=== PATIENT | male | born 1935 | race Caucasian/White ===

== ENCOUNTER 2017-09-03 09:30 | Outpatient (CLI) | payer MEDICARE ==
[2017-09-03 13:10] LABS: ALBUMIN 3.9 g/dL (3.2-5.5); ALBUMIN/GLOBULIN RATIO 1.3 (1.0-2.2); ALKALINE PHOSPHATASE 53 IU/L (42-121); ALT ALANINE AMINOTRANSFERASE 22 IU/L (10-60); AST ASPARTATE AMINOTRANSFERASE 40 IU/L (10-42); BILIRUBIN,TOTAL 1.4 mg/dL (0.2-1.0); BUN - BLOOD UREA NITROGEN 11 mg/dL (6-20); CARBON DIOXIDE - CO2 21 mmol/L (21-32); CHLORIDE 107 mmol/L (101-111); CHOL/HDL RATIO 2.8 (<5.0); CHOLESTEROL 191 mg/dL; CREATININE 1.1 mg/dL (0.6-1.2); GFR - MDRD 64 (>89); GLUCOSE 130 mg/dL (70-100); HDL CHOLESTEROL 68 mg/dL; LDL CHOLESTEROL,CALCULATED 96 mg/dL; LDL/HDL RATIO 1.4 (<3.6); SODIUM 137 mmol/L (135-145); VLDL CHOLESTEROL 27 mg/dL
[2017-09-03 13:38] LABS: HB2 TOTAL 16.7 g/dL; HEMOGLOBIN A1C 0.57 g/dL; HEMOGLOBIN A1C % 5.3 % (4.6-6.2)
== END 2017-09-03 09:31 ==
LOC: LAB.WCP 09:30
PROVIDERS: ATTEND Family Medicine
DX: E11.9 Type 2 diabetes mellitus without complications (principal); I10 Essential (primary) hypertension; E78.5 Hyperlipidemia, unspecified; R60.0 Localized edema; Z12.5 Encounter for screening for malignant neoplasm of prostate
CPT/HCPCS: 36415; 80053; 80061; 83036; 84443; G0103; 83721; 84153

== ENCOUNTER 2018-07-18 11:52 | Outpatient (CLI) | payer MEDICARE ==
[2018-07-18 12:08] LABS: BASOPHILS # (AUTO) 0.1 10^3/uL (0.0-0.1); BASOPHILS % (AUTO) 1.1 %; EOSINOPHILS # (AUTO) 0.2 10^3/uL (0.0-0.7); EOSINOPHILS % (AUTO) 1.9 %; LYMPHOCYTES # (AUTO) 1.5 10^3/uL (1.5-3.5); MEAN CORPUSCULAR HEMOGLOBIN 31.4 pg (27.0-31.0); MEAN CORPUSCULAR HGB CONC 33.7 g/dL (32.0-36.0); MEAN CORPUSCULAR VOLUME 93.3 fL (80.0-94.0); MEAN PLATELET VOLUME 7.2 fL (7.4-11.4); MONOCYTES # (AUTO) 0.8 10^3/uL (0.0-1.0); MONOCYTES % (AUTO) 8.5 %; NEUTROPHILS # (AUTO) 6.4 10^3/uL (1.5-6.6); NEUTROPHILS % (AUTO) 71.5 %; PLT - PLATELET COUNT 304 10^3/uL (130-450); RED BLOOD COUNT 4.77 10^6/uL (4.70-6.10); RED CELL DISTRIBUTION WIDTH 13.2 % (12.0-15.0)
[2018-07-18 12:20] LABS: ALBUMIN/GLOBULIN RATIO 1.1 (1.0-2.2); BILIRUBIN,TOTAL 0.9 mg/dL (0.2-1.0); CALCIUM 9.1 mg/dL (8.5-10.3); CREATININE 1.1 mg/dL (0.6-1.2); TOTAL PROTEIN 7.5 g/dL (6.7-8.2)
== END 2018-07-18 11:53 | disposition home or self-care (01) ==
LOC: LAB 11:52
PROVIDERS: ATTEND Nurse Practitioner
DX: I48.0 Paroxysmal atrial fibrillation (principal)
CPT/HCPCS: 36415; 80053; 84443; 85025

== ENCOUNTER 2018-08-06 09:25 | Outpatient (CLI) | payer MEDICARE | END 2018-08-06 09:26 | disposition home or self-care (01) | LOC: DI 09:25 | PROVIDERS: ATTEND Nurse Practitioner | DX: I48.91 Unspecified atrial fibrillation (principal); I08.0 Rheumatic disorders of both mitral and aortic valves; I27.20 Pulmonary hypertension, unspecified | CPT/HCPCS: 93306 ==

== ENCOUNTER 2018-11-07 19:36 | Outpatient (CLI) | payer MEDICARE | END 2018-11-07 19:37 | disposition critical access hospital (66) | LOC: EMS 19:36 | PROVIDERS: ATTEND Surgery | DX: R55 Syncope and collapse (principal); W10.8XXA Fall (on) (from) other stairs and steps, initial encounter; Y92.008 Other place in unspecified non-institutional (private) residence as the place of occurrence of the external cause | CPT/HCPCS: A0425; A0429 ==

== ENCOUNTER 2019-02-08 21:57 | Outpatient (CLI) | payer MEDICARE | END 2019-02-08 21:58 | disposition critical access hospital (66) | LOC: EMS 21:57 | PROVIDERS: ATTEND Surgery | DX: R53.1 Weakness (principal); R09.89 Other specified symptoms and signs involving the circulatory and respiratory systems; M25.562 Pain in left knee; M25.561 Pain in right knee | CPT/HCPCS: A0425; A0427 ==

== ENCOUNTER 2019-02-08 22:07 | Emergency (ER) | payer MEDICARE ==
--- NOTE | 2019-02-08 22:23 | ED Physician Documentation ---
PD HPI ALTERED MENTAL STATUS - Stated complaint Stated Complaint: WEAKNESS - Chief complaint Chief Complaint: Laceration - History obtained from History obtained from: Patient - History of Present Illness Timing - onset: How many hours ago (3) Timing - duration: Hours (3) Timing - details: Abrupt onset (He been having some level of general weakness without chest pain or dyspnea over the last 2 days and that abruptly worsened this evening to the point where he fell over trying to walk landed on his knees with abrasions was unable to get up on his own. He denied any injury to his head or neck or chest), Still present Quality / character: Other (general weakness) Associated symptoms: General weakness. No: Fever, Headache, Dyspnea, Cough, NVD Contributing factors: No: Anticoagulated, Recent med change, Recent illness, Intoxicated Basline status: Alert and oriented X 3, Independent, Cane Similar symptoms before: Diagnosis (Has had episodes of dizziness and also leg weakness related to MS in the past. He thought this might be it initially though the worsening tonight would be unusual.) Review of Systems Constitutional: reports: Fatigue. denies: Fever, Chills, Myalgias Nose: denies: Rhinorrhea / runny nose, Congestion Throat: denies: Sore throat Cardiac: reports: Palpitations, Pedal edema (mild chronic). denies: Chest pain / pressure, Calf pain Respiratory: denies: Dyspnea, Cough GI: denies: Abdominal Pain, Nausea, Vomiting, Diarrhea : denies: Dysuria, Frequency Musculoskeletal: denies: Neck pain, Back pain PD PAST MEDICAL HISTORY - Past Medical History Cardiovascular: Hypertension, Atrial fibrillation Respiratory: None Neuro: Multiple sclerosis Endocrine/Autoimmune: None GI: None - Present Medications Home Medications: Ambulatory Orders Medication Instructions Recorded Confirmed Lisinopril [Zestril] 20 mg PO DAILY 02/08/19 02/08/19 - Allergies Allergies/Adverse Reactions: Allergies Allergy/AdvReac Type Severity Reaction Status Date / Time No Known Drug Allergies Allergy Verified 02/08/19 22:17 - Living Situation Living Situation: reports: With spouse/s.o. Living Arrangement: reports: At home - Social History Does the pt smoke?: No Does the pt drink ETOH?: No Does the pt have substance abuse?: No - Family History Family history: reports: CAD PD ED PE NORMAL - Vitals Vital signs reviewed: Yes - General General: Alert and oriented X 3, No acute distress, Well developed/nourished - HEENT HEENT: Atraumatic, Pharynx benign - Neck Neck: Supple, no meningeal sign, No adenopathy - Cardiac Cardiac: No rub, Other (1/6 murmur left chest). No: RRR (regular but tachycardic) - Respiratory Respiratory: Clear bilaterally, Other (no chestwall tenderness) - Abdomen Abdomen: Soft, Non tender - Male Male : Deferred - Rectal Rectal: Deferred - Back Back: No CVA TTP - Derm Derm: Normal color, Warm and dry - Extremities Extremities: No calf tenderness / cord, Other (1+ edema in both lower legs without any tenderness. There are abrasions partial thickness skin on both anterior knees from his recent fall. No signs of infection. There are no bony deformities noted. There is a prepatellar effusion on the right. There is some tenderness along the right upper thigh and some pain with range of motion of the right hip.) - Neuro Neuro: Alert and oriented X 3, No motor deficit, No sensory deficit, Normal speech, Other (He is not able to move his right leg as well due to pain in the knee and hip does not seem to be due to weakness per se.) Eye Opening: Spontaneous Motor: Obeys Commands Verbal: Oriented GCS Score: 15 Results - Vitals Vitals: Vital Signs - 24 hr 02/08/19 02/08/19 02/08/19 22:07 22:16 23:17 Temperature 36.7 C Heart Rate 136 H 132 H 109 H Respiratory 31 H 14 31 H Rate Blood Pressure 119/82 H 119/82 H 105/74 O2 Saturation 100 98 95 02/09/19 00:22 Temperature 36.3 C L Heart Rate 110 H Respiratory 32 H Rate Blood Pressure 112/94 H O2 Saturation 100 Oxygen O2 Source Room air - EKG (time done) 22:14 Rate: Rate (enter#) (134) Rhythm: Atrial flutter [place]: Normal Intervals: Wide QRS, RBBB Ischemia: ST depression (lateral). No: ST elevation c/w ischemia - Labs Labs: Laboratory Tests 02/08/19 02/08/19 02/08/19 22:48 22:48 22:48 WBC 34.3 H RBC 4.91 Hgb 15.0 Hct 44.0 MCV 89.6 MCH 30.5 MCHC 34.1 RDW 13.2 Plt Count 276 MPV 9.4 Neut # (Auto) Not Reportable Lymph # (Auto) Not Reportable Esmeralda # (Auto) Not Reportable Eos # (Auto) Not Reportable Baso # (Auto) Not Reportable Absolute Nucleated RBC Not Reportable Total Counted 100 Band Neuts % (Manual) 16 H Abnorm Lymph % (Manual) 0 Nucleated RBC % Not Reportable Neutrophils # (Manual) 32.2 H Lymphocytes # (Manual) 0.7 L Monocytes # (Manual) 1.4 H Eosinophils # (Manual) 0.0 Basophils # (Manual) 0.0 Differential Comment MANUAL DIFFERENTIAL WBC Morphology NORMAL APPEARANCE Platelet Estimate NORMAL (130-450,000) Platelet Morphology NORMAL APPEARANCE RBC Morph Micro Appear NORMAL APPEARANCE Sodium 134 L Potassium 4.3 Chloride 100 L Carbon Dioxide 19 L Anion Gap 15.0 H BUN 32 H Creatinine 1.9 H Estimated GFR (MDRD) 34 L Glucose 161 H Calcium 8.8 Magnesium 2.5 Total Bilirubin 1.3 H AST 83 H ALT 22 Alkaline Phosphatase 66 Troponin I High Sens 722.1 H* B-Natriuretic Peptide Total Protein 7.6 Albumin 3.7 Globulin 3.9 Albumin/Globulin Ratio 0.9 L Lipase 25 TSH Ethyl Alcohol < 5.0 02/08/19 02/08/19 02/09/19 22:48 22:48 00:01 WBC RBC Hgb Hct MCV MCH MCHC RDW Plt Count MPV Neut # (Auto) Lymph # (Auto) Esmeralda # (Auto) Eos # (Auto) Baso # (Auto) Absolute Nucleated RBC Total Counted Band Neuts % (Manual) Abnorm Lymph % (Manual) Nucleated RBC % Neutrophils # (Manual) Lymphocytes # (Manual) Monocytes # (Manual) Eosinophils # (Manual) Basophils # (Manual) Differential Comment WBC Morphology Platelet Estimate Platelet Morphology RBC Morph Micro Appear Sodium Potassium Chloride Carbon Dioxide Anion Gap BUN Creatinine Estimated GFR (MDRD) Glucose Calcium Magnesium Total Bilirubin AST ALT Alkaline Phosphatase Troponin I High Sens 1511.0 H* B-Natriuretic Peptide 101 H Total Protein Albumin Globulin Albumin/Globulin Ratio Lipase TSH 3.28 Ethyl Alcohol - Rads (name of study) chest xray Radiology: Prelim report reviewed, See rad report (no acute process) right hip Radiology: Prelim report reviewed (no fractures), See rad report bilat knees Radiology: Prelim report reviewed (no fractures), See rad report PD MEDICAL DECISION MAKING - ED course Complexity details: reviewed results (Elevated troponin with a repeat showing increasing elevation significant enough to be concerning for acute DE.), considered differential (General weakness without chest pain, but has tachycardia. ECG showing nonspec changes. ), d/w patient, d/w communication consultant ([facility] Hortensia Dietz, [facility] [place], who approves our transferring to facility with available beds. ) Departure - Departure Disposition: 02 Transfer Acute Care Hosp Clinical Impression: Generalized weakness, Right hip pain, Elevated troponin Accidental fall Qualifiers: Encounter type: initial encounter Qualified Code(s): W19.XXXA - Unspecified fall, initial encounter Knee abrasion Qualifiers: Encounter type: initial encounter Laterality: unspecified laterality Qualified Code(s): S80.219A - Abrasion, unspecified knee, initial encounter Atrial flutter Qualifiers: Atrial flutter type: typical Qualified Code(s): I48.3 - Typical atrial flutter Condition: Stable Record reviewed to determine appropriate education?: Yes
[2019-02-08] MEDS ORDERED: METOPROLOL 5 MG/5 ML VIAL IVP STA (22:39)
[2019-02-08] MEDS ORDERED: SODIUM CHLORIDE 0.9% 500 ML IV ONE (22:39)
[2019-02-08] MEDS ORDERED: MUPIROCIN 2% OINT 1 GM TOP STA (22:40)
[2019-02-08 22:53] LABS: BASOPHILS % (AUTO) 0.4 %; LYMPHOCYTES % (AUTO) 1.5 %; MEAN CORPUSCULAR HEMOGLOBIN 30.5 pg (27.0-31.0); MEAN CORPUSCULAR HGB CONC 34.1 g/dL (32.0-36.0); MEAN CORPUSCULAR VOLUME 89.6 fL (80.0-94.0); MEAN PLATELET VOLUME 9.4 fL (7.4-11.4); MONOCYTES % (AUTO) 4.3 %; NEUTROPHILS % (AUTO) 89.6 %; PLT - PLATELET COUNT 276 10^3/uL (130-450); RED BLOOD COUNT 4.91 10^6/uL (4.70-6.10); RED CELL DISTRIBUTION WIDTH 13.2 % (12.0-15.0); WHITE BLOOD COUNT 34.3 x10^3/uL (4.8-10.8)
[2019-02-08 22:59] LABS: ABNORMAL LYMPHS % (MANUAL) 0 %
[2019-02-08 23:12] LABS: ALBUMIN 3.7 g/dL (3.2-5.5); ALBUMIN/GLOBULIN RATIO 0.9 (1.0-2.2); ALKALINE PHOSPHATASE 66 IU/L (42-121); ALT ALANINE AMINOTRANSFERASE 22 IU/L (10-60); AST ASPARTATE AMINOTRANSFERASE 83 IU/L (10-42); BILIRUBIN,TOTAL 1.3 mg/dL (0.2-1.0); BUN - BLOOD UREA NITROGEN 32 mg/dL (6-20); CALCIUM 8.8 mg/dL (8.5-10.3); CARBON DIOXIDE - CO2 19 mmol/L (21-32); CHLORIDE 100 mmol/L (101-111); CREATININE 1.9 mg/dL (0.6-1.2); GFR - MDRD 34 (>89); GLUCOSE 161 mg/dL (70-100); LIPASE 25 U/L (22-51); MAGNESIUM 2.5 mg/dL (1.7-2.8); SODIUM 134 mmol/L (135-145); TOTAL PROTEIN 7.6 g/dL (6.7-8.2)
[2019-02-08 23:30] LABS: BAND NEUTROPHILS % (MANUAL) 16 %; DIFFERENTIAL COMMENT MANUAL DIFFERENTIAL; LYMPHOCYTES # (MANUAL) 0.7 10^3/uL (1.5-3.5); LYMPHOCYTES % (MANUAL) 2 %; MONOCYTES # (MANUAL) 1.4 10^3/uL (0.0-1.0); PLATELET ESTIMATE, MANUAL NORMAL (130-450,000) (NORMAL); PLATELET MORPHOLOGY NORMAL APPEARANCE (NORMAL); RBC MORPHOLOGY (MULTIPLE) NORMAL APPEARANCE (NORMAL)
--- NOTE | 2019-02-08 23:39 | XRAY Report ---
Reason: fall Procedure Date: 02/08/2019 Accession Number: [id number] / [id number] Procedure: XR - Hip w/Pelvis 2-3V RT CPT Code: Final Report FULL RESULT: EXAM: RIGHT HIP RADIOGRAPHY EXAM DATE: 02/08/2019 11:10 PM. CLINICAL HISTORY: Fall. COMPARISON: ABDOMEN/PELVIS W/ 11/07/2018 8:27 PM. TECHNIQUE: 2 views. FINDINGS: Bones: No evidence of acute fracture. 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 Joints: Normal. No dislocation. The hip joint space is preserved. Soft Tissues: Normal. No soft tissue swelling. IMPRESSION: No evidence of acute fracture. RADIA
--- NOTE | 2019-02-08 23:40 | XRAY Report ---
Reason: chest pain Procedure Date: 02/08/2019 Accession Number: [id number] / [id number] Procedure: XR - Chest 1 View X-Ray CPT Code: 46677 Final Report FULL RESULT: EXAM: CHEST RADIOGRAPHY EXAM DATE: 02/08/2019 11:33 PM. CLINICAL HISTORY: Chest pain. COMPARISON: None. TECHNIQUE: 1 view. FINDINGS: Lungs/Pleura: Low lung volumes, producing crowding of the pulmonary vasculature. No focal infiltrate, effusion, or pneumothorax. Mediastinum: Cardiomegaly. Other: None. IMPRESSION: Cardiomegaly, but no evidence of acute cardiopulmonary disease. RADIA
--- NOTE | 2019-02-08 23:41 | XRAY Report ---
Reason: fall Procedure Date: 02/08/2019 Accession Number: [id number] / [id number] Procedure: XR - Knee 3 View BILAT CPT Code: Final Report FULL RESULT: EXAMS: 1. Right Knee Radiography 2. Left Knee Radiography EXAM DATE:02/08/2019 11:33 PM. CLINICAL HISTORY:Fall. COMPARISON: None. TECHNIQUE: 3 views each. FINDINGS: Right Knee: Bones: Normal. No fractures or bone lesions. Joints: Mild osteoarthritis. Moderate effusion. Soft Tissues: Anterior soft tissue swelling and laceration. Left Knee: Bones: Normal. No fractures or bone lesions. Joints: Mild osteoarthritis. No effusion. Soft Tissues: Anterior soft tissue swelling. IMPRESSION: No evidence of acute fracture. RADIA
[2019-02-08] MEDS ORDERED: ASPIRIN CHEW 81 MG TABLET PO STA (23:43)
[2019-02-09] MEDS ORDERED: HEPARIN 5,000 UNIT/ML VIAL IVP STA (00:05)
[2019-02-09] MEDS ORDERED: HEPARIN 25000UNITS/500ML (D5W) 25,000 UNIT/500 ML BAG IV STA (00:05)
[2019-02-09] MEDS ORDERED: CLOPIDOGREL 75 MG TABLET PO STA (00:44)
[2019-02-09 01:45] VITALS: BP 134/61
== END 2019-02-09 02:06 | disposition short-term general hospital (02) ==
LOC: EDUNIT# → ED 22:07
DX: S80.211A Abrasion, right knee, initial encounter (principal); S80.212A Abrasion, left knee, initial encounter; M25.461 Effusion, right knee; R53.1 Weakness; M25.551 Pain in right hip; R79.89 Other specified abnormal findings of blood chemistry; R00.0 Tachycardia, unspecified; W18.39XA Other fall on same level, initial encounter; Y93.01 Activity, walking, marching and hiking; Y92.009 Unspecified place in unspecified non-institutional (private) residence as the place of occurrence of the external cause; G35 Multiple sclerosis; I10 Essential (primary) hypertension
CPT/HCPCS: 36415; 71045; 73502; 73562; 80053; 83690; 83735; 83880; 84443; 84484; 85025; 93005; 96361; 96374; 96375; 96376; 99284; 99285; A9270; 80320

== ENCOUNTER 2019-02-09 02:08 | Outpatient (CLI) | payer MEDICARE | END 2019-02-09 02:09 | disposition short-term general hospital (02) | LOC: EMS 02:08 | PROVIDERS: ATTEND Surgery | DX: I21.4 Non-ST elevation (NSTEMI) myocardial infarction (principal) | CPT/HCPCS: A0425; A0426 ==

== ENCOUNTER 2019-02-24 07:00 | Outpatient (CLI) | payer MEDICARE, OTHER ==
[2019-02-24 15:07] LABS: BASOPHILS # (AUTO) 0.1 10^3/uL (0.0-0.1); BASOPHILS % (AUTO) 0.9 %; EOSINOPHILS # (AUTO) 0.1 10^3/uL (0.0-0.7); HGB - HEMOGLOBIN 10.2 g/dL (14.0-18.0); LYMPHOCYTES # (AUTO) 1.1 10^3/uL (1.5-3.5); LYMPHOCYTES % (AUTO) 7.9 %; MEAN CORPUSCULAR HEMOGLOBIN 30.4 pg (27.0-31.0); MEAN CORPUSCULAR HGB CONC 32.7 g/dL (32.0-36.0); MEAN CORPUSCULAR VOLUME 92.9 fL (80.0-94.0); MEAN PLATELET VOLUME 9.2 fL (7.4-11.4); MONOCYTES # (AUTO) 0.8 10^3/uL (0.0-1.0); MONOCYTES % (AUTO) 5.7 %; NEUTROPHILS # (AUTO) 11.6 10^3/uL (1.5-6.6); NEUTROPHILS % (AUTO) 82.9 %; PLT - PLATELET COUNT 470 10^3/uL (130-450); RED BLOOD COUNT 3.36 10^6/uL (4.70-6.10); RED CELL DISTRIBUTION WIDTH 12.8 % (12.0-15.0)
[2019-02-24 15:22] LABS: ALBUMIN 2.1 g/dL (3.2-5.5); ALBUMIN/GLOBULIN RATIO 0.6 (1.0-2.2); ALKALINE PHOSPHATASE 73 IU/L (42-121); ALT ALANINE AMINOTRANSFERASE 28 IU/L (10-60); AST ASPARTATE AMINOTRANSFERASE 35 IU/L (10-42); BILIRUBIN,TOTAL 0.8 mg/dL (0.2-1.0); BUN - BLOOD UREA NITROGEN 21 mg/dL (6-20); CARBON DIOXIDE - CO2 22 mmol/L (21-32); CHLORIDE 99 mmol/L (101-111); CREATININE 1.1 mg/dL (0.6-1.2); CRP - C-REACTIVE PROTEIN 14.8 mg/dL (0-1.0); GFR - MDRD 64 (>89); GLUCOSE 140 mg/dL (70-100); SODIUM 131 mmol/L (135-145); TOTAL PROTEIN 5.6 g/dL (6.7-8.2); VANCOMYCIN,RANDOM 22.9 ug/mL
== END 2019-02-24 23:59 | disposition home or self-care (01) ==
LOC: LAB.R 07:00
PROVIDERS: ATTEND Family Medicine
DX: I82.409 Acute embolism and thrombosis of unspecified deep veins of unspecified lower extremity (principal); I10 Essential (primary) hypertension; D72.829 Elevated white blood cell count, unspecified; M25.461 Effusion, right knee; M00.9 Pyogenic arthritis, unspecified; I21.4 Non-ST elevation (NSTEMI) myocardial infarction
CPT/HCPCS: 80053; 80202; 85025; 85651; 86140

== ENCOUNTER 2019-02-27 08:00 | Outpatient (CLI) | payer MEDICARE, OTHER ==
[2019-02-27 22:11] LABS: BASOPHILS # (AUTO) 0.1 10^3/uL (0.0-0.1); BASOPHILS % (AUTO) 0.8 %; EOSINOPHILS # (AUTO) 0.1 10^3/uL (0.0-0.7); EOSINOPHILS % (AUTO) 1.3 %; HGB - HEMOGLOBIN 10.9 g/dL (14.0-18.0); LYMPHOCYTES # (AUTO) 1.3 10^3/uL (1.5-3.5); LYMPHOCYTES % (AUTO) 15.4 %; MEAN CORPUSCULAR HEMOGLOBIN 29.9 pg (27.0-31.0); MEAN CORPUSCULAR HGB CONC 32.7 g/dL (32.0-36.0); MEAN CORPUSCULAR VOLUME 91.2 fL (80.0-94.0); MEAN PLATELET VOLUME 9.3 fL (7.4-11.4); MONOCYTES # (AUTO) 0.7 10^3/uL (0.0-1.0); NEUTROPHILS # (AUTO) 6.1 10^3/uL (1.5-6.6); NEUTROPHILS % (AUTO) 73.3 %; PLT - PLATELET COUNT 419 10^3/uL (130-450); RED BLOOD COUNT 3.65 10^6/uL (4.70-6.10); RED CELL DISTRIBUTION WIDTH 12.6 % (12.0-15.0); WHITE BLOOD COUNT 8.3 x10^3/uL (4.8-10.8)
[2019-02-27 22:13] LABS: BILIRUBIN,URINE NEGATIVE (NEGATIVE); GLUCOSE, URINE (UA) NEGATIVE (NEGATIVE); KETONES,URINE (UA) NEGATIVE (NEGATIVE); LEUKOCYTE ESTERASE, URINE NEGATIVE (NEGATIVE); NITRITE,URINE NEGATIVE (NEGATIVE); OCCULT BLOOD,URINE TRACE-INTA (NEGATIVE); PROTEIN,URINE NEGATIVE (NEGATIVE); UROBILINOGEN,URINE 0.2 (NORMAL) E.U./dL (NORMAL)
[2019-02-27 22:18] LABS: CLARITY,URINE CLEAR (CLEAR)
[2019-02-27 22:26] LABS: ALBUMIN 2.1 g/dL (3.2-5.5); ALBUMIN/GLOBULIN RATIO 0.6 (1.0-2.2); CALCIUM 8.3 mg/dL (8.5-10.3); CREATININE 0.9 mg/dL (0.6-1.2); TOTAL PROTEIN 5.8 g/dL (6.7-8.2)
== END 2019-02-27 08:01 | disposition home or self-care (01) ==
LOC: LAB.R 08:00
DX: I10 Essential (primary) hypertension (principal); I48.91 Unspecified atrial fibrillation; N39.0 Urinary tract infection, site not specified
CPT/HCPCS: 80053; 81001; 81003; 85025; 87086

== ENCOUNTER 2019-03-04 08:00 | Outpatient (CLI) | payer MEDICARE, OTHER ==
[2019-03-04 10:22] LABS: BASOPHILS # (AUTO) 0.1 10^3/uL (0.0-0.1); BASOPHILS % (AUTO) 0.8 %; EOSINOPHILS # (AUTO) 0.1 10^3/uL (0.0-0.7); EOSINOPHILS % (AUTO) 1.6 %; HGB - HEMOGLOBIN 11.1 g/dL (14.0-18.0); LYMPHOCYTES # (AUTO) 1.5 10^3/uL (1.5-3.5); LYMPHOCYTES % (AUTO) 16.8 %; MEAN CORPUSCULAR HEMOGLOBIN 29.7 pg (27.0-31.0); MEAN CORPUSCULAR HGB CONC 33.2 g/dL (32.0-36.0); MEAN CORPUSCULAR VOLUME 89.3 fL (80.0-94.0); MEAN PLATELET VOLUME 9.5 fL (7.4-11.4); MONOCYTES # (AUTO) 0.8 10^3/uL (0.0-1.0); MONOCYTES % (AUTO) 8.5 %; NEUTROPHILS # (AUTO) 6.4 10^3/uL (1.5-6.6); NEUTROPHILS % (AUTO) 70.9 %; PLT - PLATELET COUNT 485 10^3/uL (130-450); RED BLOOD COUNT 3.74 10^6/uL (4.70-6.10); RED CELL DISTRIBUTION WIDTH 12.6 % (12.0-15.0)
[2019-03-04 10:24] LABS: ALBUMIN 2.6 g/dL (3.2-5.5); ALBUMIN/GLOBULIN RATIO 0.6 (1.0-2.2); BILIRUBIN,TOTAL 0.7 mg/dL (0.2-1.0); CALCIUM 8.7 mg/dL (8.5-10.3); CREATININE 0.9 mg/dL (0.6-1.2); TOTAL PROTEIN 6.7 g/dL (6.7-8.2)
== END 2019-03-04 23:59 | disposition home or self-care (01) ==
LOC: LAB.R 08:00
PROVIDERS: ATTEND Family Medicine
DX: M67.362 Transient synovitis, left knee (principal); A41.9 Sepsis, unspecified organism; I21.4 Non-ST elevation (NSTEMI) myocardial infarction
CPT/HCPCS: 80053; 85025

== ENCOUNTER 2019-03-11 11:30 | Outpatient (CLI) | payer MEDICARE, OTHER ==
[2019-03-11 14:14] LABS: BASOPHILS # (AUTO) 0.1 10^3/uL (0.0-0.1); BASOPHILS % (AUTO) 0.7 %; EOSINOPHILS # (AUTO) 0.2 10^3/uL (0.0-0.7); EOSINOPHILS % (AUTO) 1.8 %; HGB - HEMOGLOBIN 10.5 g/dL (14.0-18.0); LYMPHOCYTES # (AUTO) 1.5 10^3/uL (1.5-3.5); MEAN CORPUSCULAR HEMOGLOBIN 29.2 pg (27.0-31.0); MEAN CORPUSCULAR HGB CONC 33.2 g/dL (32.0-36.0); MEAN CORPUSCULAR VOLUME 87.8 fL (80.0-94.0); MEAN PLATELET VOLUME 9.2 fL (7.4-11.4); MONOCYTES # (AUTO) 0.9 10^3/uL (0.0-1.0); MONOCYTES % (AUTO) 9.8 %; NEUTROPHILS % (AUTO) 68.3 %; PLT - PLATELET COUNT 417 10^3/uL (130-450); RED CELL DISTRIBUTION WIDTH 12.7 % (12.0-15.0); WHITE BLOOD COUNT 8.8 x10^3/uL (4.8-10.8)
[2019-03-11 14:24] LABS: ALBUMIN 2.6 g/dL (3.2-5.5); ALBUMIN/GLOBULIN RATIO 0.7 (1.0-2.2); BILIRUBIN,TOTAL 0.4 mg/dL (0.2-1.0); CALCIUM 8.6 mg/dL (8.5-10.3); TOTAL PROTEIN 6.5 g/dL (6.7-8.2); URIC ACID 3.2 mg/dL (2.6-7.2)
== END 2019-03-11 23:59 | disposition home or self-care (01) ==
LOC: LAB.R 11:30
DX: D72.829 Elevated white blood cell count, unspecified (principal); I82.409 Acute embolism and thrombosis of unspecified deep veins of unspecified lower extremity; I10 Essential (primary) hypertension; M10.9 Gout, unspecified; M00.9 Pyogenic arthritis, unspecified
CPT/HCPCS: 80053; 84550; 85025

== ENCOUNTER 2019-03-19 11:00 | Outpatient (CLI) | payer MEDICARE ==
[2019-03-19 18:49] LABS: BASOPHILS # (AUTO) 0.1 10^3/uL (0.0-0.1); BASOPHILS % (AUTO) 0.6 %; EOSINOPHILS # (AUTO) 0.2 10^3/uL (0.0-0.7); EOSINOPHILS % (AUTO) 1.9 %; HGB - HEMOGLOBIN 11.6 g/dL (14.0-18.0); LYMPHOCYTES # (AUTO) 1.8 10^3/uL (1.5-3.5); LYMPHOCYTES % (AUTO) 19.2 %; MEAN CORPUSCULAR HEMOGLOBIN 29.3 pg (27.0-31.0); MEAN CORPUSCULAR HGB CONC 32.6 g/dL (32.0-36.0); MEAN CORPUSCULAR VOLUME 89.9 fL (80.0-94.0); MEAN PLATELET VOLUME 9.2 fL (7.4-11.4); MONOCYTES # (AUTO) 0.7 10^3/uL (0.0-1.0); MONOCYTES % (AUTO) 7.7 %; NEUTROPHILS # (AUTO) 6.4 10^3/uL (1.5-6.6); PLT - PLATELET COUNT 461 10^3/uL (130-450); RED BLOOD COUNT 3.96 10^6/uL (4.70-6.10); RED CELL DISTRIBUTION WIDTH 13.3 % (12.0-15.0); WHITE BLOOD COUNT 9.3 x10^3/uL (4.8-10.8)
[2019-03-19 19:00] LABS: CALCIUM 9.4 mg/dL (8.5-10.3); CREATININE 0.9 mg/dL (0.6-1.2)
== END 2019-03-19 23:59 | disposition home or self-care (01) ==
LOC: LAB.R 11:00
DX: E87.1 Hypo-osmolality and hyponatremia (principal); M25.861 Other specified joint disorders, right knee; D72.829 Elevated white blood cell count, unspecified
CPT/HCPCS: 80048; 85025; 85651

== ENCOUNTER 2019-03-26 13:19 | Outpatient (CLI) | payer MEDICARE | END 2019-03-26 13:20 | disposition critical access hospital (66) | LOC: EMS 13:19 | PROVIDERS: ATTEND Surgery | DX: R55 Syncope and collapse (principal); M25.461 Effusion, right knee | CPT/HCPCS: A0425; A0429 ==

== ENCOUNTER 2019-03-26 13:22 | Inpatient (IN) | payer MEDICARE ==
[2019-03-26 13:58] LABS: BASOPHILS # (AUTO) 0.1 10^3/uL (0.0-0.1); BASOPHILS % (AUTO) 0.5 %; EOSINOPHILS # (AUTO) 0.1 10^3/uL (0.0-0.7); EOSINOPHILS % (AUTO) 1.2 %; HGB - HEMOGLOBIN 11.5 g/dL (14.0-18.0); LYMPHOCYTES # (AUTO) 1.4 10^3/uL (1.5-3.5); LYMPHOCYTES % (AUTO) 12.4 %; MEAN CORPUSCULAR HEMOGLOBIN 27.9 pg (27.0-31.0); MEAN CORPUSCULAR VOLUME 87.1 fL (80.0-94.0); MEAN PLATELET VOLUME 8.9 fL (7.4-11.4); MONOCYTES % (AUTO) 8.6 %; NEUTROPHILS # (AUTO) 8.5 10^3/uL (1.5-6.6); PLT - PLATELET COUNT 391 10^3/uL (130-450); RED BLOOD COUNT 4.12 10^6/uL (4.70-6.10); RED CELL DISTRIBUTION WIDTH 13.8 % (12.0-15.0); WHITE BLOOD COUNT 11.2 x10^3/uL (4.8-10.8)
--- NOTE | 2019-03-26 14:06 | ED Physician Documentation ---
PD HPI SYNCOPE - Stated complaint Stated Complaint: SYNCOPE - Chief complaint Chief Complaint: Neuro - History obtained from History obtained from: Patient, Family - History of Present Illness Witnessed: Witnessed (83-year-old gentleman has been in a [facility] since a heart attack few days after [place].. Per him he was not stented, it was just treated medically. He had a syncopal episode today for maybe a couple of minutes. He did not know what was coming or looked dizzy before hand. There was no injury. He complains of right knee pain but that is not an acute issue, that is been going on for months since a fall previously. There is no associated chest pain or trouble breathing. He feels fine now. No dark or tarry stools.) Review of Systems Ten Systems: 10 systems reviewed and negative Constitutional: denies: Fever, Chills Cardiac: denies: Chest pain / pressure, Palpitations Respiratory: denies: Dyspnea, Cough PD PAST MEDICAL HISTORY - Past Medical History Cardiovascular: Hypertension, Atrial fibrillation Respiratory: None Neuro: Multiple sclerosis Endocrine/Autoimmune: None GI: None - Past Surgical History Past Surgical History: Yes Ortho: Other HEENT: Tonsil/Adenoidectomy - Present Medications Home Medications: Ambulatory Orders Medication Instructions Recorded Confirmed Lisinopril [Zestril] 20 mg PO QDBREAKFAST 02/08/19 03/26/19 Acetaminophen [Tylenol Extra 1,000 mg PO TID 03/26/19 03/26/19 Strength] Colchicine [Colcrys] 0.6 mg PO QDBREAKFAST 03/26/19 03/26/19 Diltiazem HCl [Cardizem LA] 120 mg PO QDBREAKFAST 03/26/19 03/26/19 Metoprolol Tartrate [Lopressor] 100 mg PO BIDWM 03/26/19 03/26/19 Multivitamin [Theragran] 1 each PO QDBREAKFAST 03/26/19 03/26/19 Potassium Chloride [K-Dur] 20 meq PO QDBREAKFAST 03/26/19 03/26/19 Rivaroxaban [Xarelto] 20 mg PO QDBREAKFAST 03/26/19 03/26/19 Saccharomyces Boulardii [Florastor] 250 mg PO QDBREAKFAST 03/26/19 03/26/19 Sodium Chloride [Salt Tab] 1 gm PO QDBREAKFAST 03/26/19 03/26/19 allopurinoL [Zyloprim] 100 mg PO QDBREAKFAST 03/26/19 03/26/19 traMADol [Ultram] 50 mg PO Q6H PRN MDD 300 MG 03/26/19 03/26/19 - Allergies Allergies/Adverse Reactions: Allergies Allergy/AdvReac Type Severity Reaction Status Date / Time No Known Drug Allergies Allergy Verified 03/26/19 13:34 - Social History Does the pt smoke?: No Smoking Status: Never smoker Does the pt drink ETOH?: No Does the pt have substance abuse?: No - Immunizations Immunizations are current?: Yes - POLST Patient has POLST: No PD ED PE NORMAL - Vitals Vital signs reviewed: Yes - General General: Alert and oriented X 3 (He seems to have some short-term memory issues, not a great historian.), No acute distress - HEENT HEENT: PERRL, EOMI - Neck Neck: Supple, no meningeal sign, No bony TTP - Cardiac Cardiac: RRR (With occasional extrasystoles and no murmur) - Respiratory Respiratory: No respiratory distress, Clear bilaterally - Abdomen Abdomen: Soft, Non tender - Back Back: No CVA TTP, No spinal TTP - Derm Derm: Normal color, Warm and dry - Extremities Extremities: No edema, No calf tenderness / cord, Other (The right knee has a large effusion, hurts to move, no warmth or redness. No calf pain or swelling.) - Neuro Neuro: Alert and oriented X 3, Normal speech Results - Vitals Vitals: Vital Signs - 24 hr 03/26/19 03/26/19 13:25 14:39 Temperature 36.1 C L Heart Rate 85 76 Respiratory 18 18 Rate Blood Pressure 104/78 120/83 H O2 Saturation 100 95 Oxygen O2 Source Room air - EKG (time done) 1335 Rate: Rate (enter#) (75) Rhythm: NSR Intervals: Prolonged [place], RBBB Compare to prior EKG: Changed from prior EKG (Last EKG on file was dated February 08 of last year. He was having a STEMI at the time, the ST segments are now flat with a changed right bundle branch block.) - Labs Labs: Laboratory Tests 03/26/19 03/26/19 03/26/19 13:48 13:48 13:48 WBC 11.2 H RBC 4.12 L Hgb 11.5 L Hct 35.9 L MCV 87.1 MCH 27.9 MCHC 32.0 RDW 13.8 Plt Count 391 MPV 8.9 Neut # (Auto) 8.5 H Lymph # (Auto) 1.4 L [place] # (Auto) 1.0 Eos # (Auto) 0.1 Baso # (Auto) 0.1 Absolute Nucleated RBC 0.00 Nucleated RBC % 0.0 Sodium 134 L Potassium 4.2 Chloride 98 L Carbon Dioxide 24 Anion Gap 12.0 BUN 25 H Creatinine 1.0 Estimated GFR (MDRD) 71 L Glucose 120 H Calcium 9.4 Total Bilirubin 0.6 AST 27 ALT 18 Alkaline Phosphatase 95 Troponin I High Sens 8.9 Total Protein 7.4 Albumin 3.4 Globulin 4.0 Albumin/Globulin Ratio 0.9 L Lipase 38 PD MEDICAL DECISION MAKING - ED course ED course: 83-year-old gentleman with non-premonition of syncope today. He is anticoagulated with a history of heart disease. His EKG is nonischemic, occasional extrasystoles on the monitor, nothing looking malignant. Given his age and risk factors though he would placed in observation for arrhythmia monitoring Departure - Departure Disposition: ED Place in Observation Clinical Impression: Syncope Qualifiers: Syncope type: unspecified Qualified Code(s): R55 - Syncope and collapse Condition: Stable Discharge Date/Time: 03/26/19 16:35
[2019-03-26 14:14] LABS: ALBUMIN 3.4 g/dL (3.2-5.5); ALBUMIN/GLOBULIN RATIO 0.9 (1.0-2.2); BILIRUBIN,TOTAL 0.6 mg/dL (0.2-1.0); CALCIUM 9.4 mg/dL (8.5-10.3); TOTAL PROTEIN 7.4 g/dL (6.7-8.2)
--- NOTE | 2019-03-26 16:01 | PHARMACY PROGRESS NOTE ---
- Best Possible Medication History Admit Date and Time: Patient still in ED Processed by: Pharmacy Medication History completed: Yes Patient Interview: Pt unable to participate Secondary Source(s): Facility MAR as ONLY source As the person ultimately responsible for medication therapy, providers are able to order a medication from an existing home medication list in [facility] via the "Reconcile Routine" prior to Confirmation of that medication by shipping support clerk. Such practice is discouraged except when the physician, in their clinical judgment, deems that a medical need exists for a medication without regard to previous use.
[2019-03-26] MEDS ORDERED: ZOLPIDEM 5 MG TABLET PO PRN (16:11)
[2019-03-26] MEDS ORDERED: SODIUM CHLORIDE FLUSH 0.9% 10 ML SYRINGE IVP PRN (16:11)
[2019-03-26] MEDS ORDERED: ONDANSETRON 4 MG/2 ML VIAL IVP PRN (16:11)
--- NOTE | 2019-03-26 16:23 | HISTORY & PHYSICAL EXAMINATION ---
Chief Complaint - Chief Complaint Chief Complaint: syncope History of Present Illness - Admitted From Admitted From:: ER - History Obtained From History obtained from: his and his sister Exam Limitations: confused - History of Present Illness HPI Comment/Other: Mr. Ball is a 83-year-old man with a PMH significant for MS, HTN, Afib with Xarelto, recent heart attach without stent, who present ER complain of syncope. pt is confused, he could not provide history. pt's is at the bedside to help provide medical history. pt is living at [facility] now. Per pt's report, In this morning around 10am, when PT in [facility] tried to move pt from the bed to the chair, pt lost his conscience about couple of minutes. There was no injury. She report her often refused to drink water as well. Pt's sister report pt had a heart attack on 2018, then pt was transferred to [facility]. In there pt did not have stent. Instead, pt's right knee was gotten infected, pt had aspiration for his knee. Since from that, pt's right lower extremity became swelling. There is no chest pain, fever, chill, shortness of breath, headache, seizure, unilateral weakness or focal neurological deficit. Pt report he feels fine, no GI bleed or black stool. Route test reveals normal arrange of Troponin, slight elevated BUN, Na is 134, slight elevated WBC at 11.4. In ER, pt has is afebrile, hemodynamic stable. pt is admitted for syncope. Discussed with pt's for the care goal, she state pt has POLST, and pt is DNR/DNI. History - Past Medical History Cardiovascular: reports: Hypertension, Atrial fibrillation Respiratory: reports: None Neuro: reports: Multiple sclerosis Endocrine/Autoimmune: reports: None GI: reports: None MRSA Hx?: No - Past Surgical History Ortho: reports: Other HEENT: reports: Tonsil/Adenoidectomy - Family & Social History Family History: Mother: Cancer Family History Comment/Other: pt's mother from cancer, his father at ago 94. pt has one brother and one sister, all are healthy Social History Notes: pt has no hx of smoking, alcohol, and drug issue. he is l iving at [facility]. - POLST Patient has POLST: Yes POLST Status: DNR Meds/Allgy - Home Medications Home Medications: Ambulatory Orders Medication Instructions Recorded Confirmed Lisinopril [Zestril] 20 mg PO QDBREAKFAST 02/08/19 03/26/19 Acetaminophen [Tylenol Extra 1,000 mg PO TID 03/26/19 03/26/19 Strength] Colchicine [Colcrys] 0.6 mg PO QDBREAKFAST 03/26/19 03/26/19 Diltiazem HCl [Cardizem LA] 120 mg PO QDBREAKFAST 03/26/19 03/26/19 Metoprolol Tartrate [Lopressor] 100 mg PO BIDWM 03/26/19 03/26/19 Multivitamin [Theragran] 1 each PO QDBREAKFAST 03/26/19 03/26/19 Potassium Chloride [K-Dur] 20 meq PO QDBREAKFAST 03/26/19 03/26/19 Rivaroxaban [Xarelto] 20 mg PO QDBREAKFAST 03/26/19 03/26/19 Saccharomyces Boulardii [Florastor] 250 mg PO QDBREAKFAST 03/26/19 03/26/19 Sodium Chloride [Salt Tab] 1 gm PO QDBREAKFAST 03/26/19 03/26/19 allopurinoL [Zyloprim] 100 mg PO QDBREAKFAST 03/26/19 03/26/19 traMADol [Ultram] 50 mg PO Q6H PRN MDD 300 MG 03/26/19 03/26/19 - Allergies Allergies/Adverse Reactions: Allergies Allergy/AdvReac Type Severity Reaction Status Date / Time No Known Drug Allergies Allergy Verified 03/26/19 13:34 Review of Systems - Constitutional Constitutional: denies: Fatigue, Fever, Chills, Malaise, Weakness, Poor appetite - Eyes Eyes: denies: Pain, Amaurosis, Spots in vision, Field loss, Vision loss - Ears, Nose & Throat Ears, Nose & Throat: denies: Ear pain, Vertigo, Nasal pain, Nosebleeds, Nasal obstruction, Nasal congestion, Postnasal drainage, Sore throat, Mouth lesions, Bleeding gums - Cardiovascular Cariovascular: reports: Syncope. denies: Irregular heart rate, Palpitations, Chest pain, Edema, Lightheadedness, Exertional dyspnea, Decr. exercise tolerance - Respiratory Respiratory: denies: Cough, Sputum production, Wheezing, Snoring, Hemoptysis, Orthopnea, SOB at rest, SOB with exertion - Gastrointestinal Gastrointestinal: denies: Abdominal pain, Abdominal distention, Constipation, Diarrhea, Change in bowel habits, Rectal bleeding, Black stools, Bloody stools, Nausea, Vomiting - Genitourinary Genitourinary: denies: Dysuria, Frequency, Urgency, Hematuria, Incontinence, Flank pain, Nocturia, Urethral discharge - Musculoskeletal Musculoskeletal: denies: Muscle pain, Back pain, Muscle aches, Stiffness, Limited range of motion, Muscle weakness, Gout - Integumentary Integumentary: denies: Rash, Pruritis, Lesions, Dryness, Lumps, Acne, Pigment changes, Nail changes - Neurological Neurological: denies: General weakness, Focal weakness, Headache, Dizziness, Numbness, Memory problems, Pre-existing deficit, Abnormal gait, Seizures, Incoordination, Slurred speech - Psychiatric Psychiatric: denies: Depression, Anxiety, Suicidal, Delusions, Hallucinations, Homicidal - Endocrine Endocrine: denies: Polyuria, Polydypsia, Polyphagia, Intolerance to cold - Hematologic/Lymphatic Hematologic/Lymphatic: denies: Anemia, Bruising, Petechiae, Blood clots, Lymphadenopathy, Bleeding tendencies - All Other Systems All Other Systems: reports: Other (pt's help answer ROS) Exam - Vital Signs Vital Signs: Vital Signs x48h Temp Pulse Resp BP Pulse Ox 03/26/19 14:39 76 18 120/83 H 95 03/26/19 13:25 36.1 C L 85 18 104/78 100 - Physical Exam General Appearance: positive: No acute distress, Alert. negative: Lethargic Eyes Bilateral: positive: Normal inspection, PERRL, EOMI, No lid inflammation ENT: positive: ENT inspection nml, Pharynx nml, No signs of dehydration. negative: Purulent nasal drainage Neck: positive: Nml inspection, Thyroid nml, No JVD, Trachea midline. negative: Thyromegaly, Lymphadenopathy (R), Lymphadenopathy (L), Stiff neck, Tracheal deviation Respiratory: positive: Chest non-tender, No respiratory distress, Breath sounds nml. negative: Wheezes, Rales, Rhonchi Cardiovascular: positive: Regular rate & rhythm, No murmur, No gallop. n egative: Irregularly irregular, Extrasystoles, Tachycardia, Bradycardia, JVD present, Systolic murmur, Diastolic murmur Peripheral Pulses: positive: 2+ Abdomen: positive: Non-tender, No organomegaly, Nml bowel sounds, No distention. negative: Tenderness, Guarding, Rebound Back: positive: Nml inspection. negative: CVA tenderness (R), CVA tenderness (L) Skin: positive: Color nml, No rash, Warm, Dry. negative: Cyanosis, Diaphoresis, Pallor, Skin rash Extremities: positive: Non-tender. negative: Calf tenderness, Jackie's sign/cords Neurologic/Psychiatric: positive: Sensation nml. negative: Weakness, Sensory loss, Facial droop, Slurred/abnml speech Sepsis Event Note (H) - Evaluation Current Stage of Sepsis: Ruled out Conclusion/Plan - Problem List (1) Syncope Conclusion/Plan: when pt was changed position, pt has syncope, it is likely from orthostatic hypotension, and pt has mild to moderate dehydration from clinically and lab test. plan: ECHO tele and vital monitor orthostatic vital check hydration with IVF Qualifiers: Syncope type: unspecified Qualified Code(s): R55 - Syncope and collapse (2) Afib Conclusion/Plan: pt has hx of Afib, now pt is has stable HR and BP resume home Cardizem and Metoprolol, home Xarelto. 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 pt has no focal neurolo gical deficit. pt is on Xarelto neuro check nurse oriental to pt (4) HTN (hypertension) Conclusion/Plan: pt has slight lower BP at admission, now stable, resume home meds Cardizem and Metoprolol vital monitor pt (5) Dehydration Conclusion/Plan: pt has slight elevated BUN and creatinine, clinic pt present dehydration. IVF of NS, precaution of fluid overload (6) Hyponatremia Conclusion/Plan: Na 134 today, likely from hypovolium hyponatremia hydration with IV of NS lab monitor (7) Hx of multiple sclerosis Conclusion/Plan: stable, no flare. closely monitor - Lab Results Fish Bones: 03/26/19 13:48 03/26/19 13:48 Core Measures - Anticipated LOS I expect patient to be DC'd or transferred within 96 hours.: Yes - DVT/VTE - Prophylaxis VTE/DVT Device ordered at admit?: Yes VTE/DVT Prophylaxis med ordered at admit?: Yes
[2019-03-26] MEDS: SODIUM CHLORIDE FLUSH 0.9% 10 ML SYRINGE IVP SCH (17:06)
[2019-03-26] MEDS ORDERED: SODIUM CHLORIDE 0.9% 1,000 ML IV SCH (18:00)
[2019-03-26] MEDS: SODIUM CHLORIDE 0.9% 1,000 ML IV SCH (18:06)
[2019-03-26] MEDS: METOPROLOL TARTRATE 50 MG TABLET PO SCH (18:09)
--- NOTE | 2019-03-26 20:26 | XRAY Report ---
Reason: SOB Procedure Date: 03/26/2019 Accession Number: [id number] / [id number] Procedure: XR - Chest 1 View X-Ray CPT Code: 13856 Final Report FULL RESULT: EXAM: CHEST RADIOGRAPHY EXAM DATE: 03/26/2019 05:44 PM. CLINICAL HISTORY: Shortness of breath. COMPARISON: CHEST 1 VIEW 02/08/2019 10:54 PM. TECHNIQUE: 1 view. FINDINGS: Lungs/Pleura: No focal opacities evident. No pleural effusion. No pneumothorax. Mediastinum: The cardiomediastinal silhouette has decreased in size in the interval and is now within normal limits. Mediastinal widening is also resolved. Other: None. IMPRESSION: 1. No acute cardiopulmonary disease. 2. Interval resolution of cardiomediastinal silhouette widening. RAD[facility]
[2019-03-26] MEDS: FAMOTIDINE 20 MG TABLET PO SCH (21:29)
[2019-03-26] MEDS: ACETAMINOPHEN 325 MG TABLET PO PRN (22:59)
[2019-03-27] MEDS: SODIUM CHLORIDE FLUSH 0.9% 10 ML SYRINGE IVP SCH ×3 (01:03→19:12)
[2019-03-27] MEDS: SODIUM CHLORIDE 0.9% 1,000 ML IV SCH (03:17)
[2019-03-27] MEDS: ACETAMINOPHEN 325 MG TABLET PO PRN ×3 (03:22→19:37)
[2019-03-27] MEDS: traMADol 50 MG TABLET PO PRN ×3 (04:26→22:13)
[2019-03-27 04:31] LABS: BASOPHILS # (AUTO) 0.1 10^3/uL (0.0-0.1); BASOPHILS % (AUTO) 0.6 %; EOSINOPHILS # (AUTO) 0.2 10^3/uL (0.0-0.7); HGB - HEMOGLOBIN 10.2 g/dL (14.0-18.0); LYMPHOCYTES # (AUTO) 1.9 10^3/uL (1.5-3.5); LYMPHOCYTES % (AUTO) 21.7 %; MEAN CORPUSCULAR HEMOGLOBIN 29.2 pg (27.0-31.0); MEAN CORPUSCULAR HGB CONC 33.2 g/dL (32.0-36.0); MEAN PLATELET VOLUME 8.6 fL (7.4-11.4); MONOCYTES # (AUTO) 0.8 10^3/uL (0.0-1.0); MONOCYTES % (AUTO) 8.5 %; NEUTROPHILS # (AUTO) 5.9 10^3/uL (1.5-6.6); NEUTROPHILS % (AUTO) 66.4 %; PLT - PLATELET COUNT 338 10^3/uL (130-450); RED BLOOD COUNT 3.49 10^6/uL (4.70-6.10); RED CELL DISTRIBUTION WIDTH 13.9 % (12.0-15.0); WHITE BLOOD COUNT 8.9 x10^3/uL (4.8-10.8)
[2019-03-27 04:41] LABS: CALCIUM 8.9 mg/dL (8.5-10.3); CREATININE 1.1 mg/dL (0.6-1.2); MAGNESIUM 1.8 mg/dL (1.7-2.8)
[2019-03-27 08:00] LABS: BILIRUBIN,URINE NEGATIVE (NEGATIVE); GLUCOSE, URINE (UA) NEGATIVE (NEGATIVE); KETONES,URINE (UA) NEGATIVE (NEGATIVE); LEUKOCYTE ESTERASE, URINE NEGATIVE (NEGATIVE); NITRITE,URINE NEGATIVE (NEGATIVE); OCCULT BLOOD,URINE NEGATIVE (NEGATIVE); PH,URINE 5.5 PH (5.0-7.5); PROTEIN,URINE NEGATIVE (NEGATIVE); UROBILINOGEN,URINE 0.2 (NORMAL) E.U./dL (NORMAL)
[2019-03-27 08:07] LABS: CLARITY,URINE CLEAR (CLEAR)
[2019-03-27 08:19] LABS: BACTERIA,URINE Rare /HPF (None Seen); RBC,URINE 0-5 /HPF (0-5); SQUAMOUS EPITHELIAL CELL,UR RARE Squamous (<= Few)
[2019-03-27] MEDS: METOPROLOL TARTRATE 50 MG TABLET PO SCH ×2 (08:56→19:10)
[2019-03-27] MEDS: diltiaZEM CD 120 MG CAPSULE PO SCH (08:57)
[2019-03-27] MEDS: FAMOTIDINE 20 MG TABLET PO SCH ×2 (08:57→22:13)
[2019-03-27] MEDS: RIVAROXABAN 10 MG TABLET PO SCH (08:58)
--- NOTE | 2019-03-27 11:27 | Discharge Plan ---
Discharge Plan Problem Reviewed?: Yes Condition: Stable No Smoking: If you smoke, Please STOP! Call for help. Follow-up with: Kamini Bragg ARNP, [facility] [Primary Care Provider] -
--- NOTE | 2019-03-27 12:34 | XRAY Report ---
Reason: aspiration, cough Procedure Date: 03/27/2019 Accession Number: [id number] / [id number] Procedure: XR - Chest 1 View X-Ray CPT Code: 97448 Final Report FULL RESULT: EXAM: CHEST RADIOGRAPHY EXAM DATE: 03/27/2019 12:17 PM. CLINICAL HISTORY: Aspiration, cough. COMPARISON: CHEST 1 VIEW 03/26/2019 5:28 PM. TECHNIQUE: 1 view. FINDINGS: Lungs/Pleura: Development of consolidation at right lung base and infiltrate in the right upper lung. Left lung appears clear. Heart size within normal limits. IMPRESSION: Right lung infiltrates, compatible with aspiration. RADIA
--- NOTE | 2019-03-27 13:16 | PROVIDER PROGRESS NOTE ---
Assessment/Plan - Problem List (1) Aspiration pneumonia Assessment/Plan: 2 pt present lots of cough. it seems from his aspiration. CXR reveals infiltration on right lung, compatible with aspiration. start with antibiotics Unasyn, nurse for aspiration precaution, order mucnix consult with ST, begin with dysphagia diet until ST review 2) Syncope Conclusion/Plan: 03/27 pt report he feel much better today. pt's ECHO is unremarkable, and EKG reveals stable without ST variation. Syncope is likely from pt's orthostatic hypotension and dehydration, will hold his home BP meds Lisinopril now but continue Cardizem and Metoprolol because of Afib. continue hydration and precaution of fluid overload. when pt was changed position, pt has syncope, it is likely from orthostatic hypotension, and pt has mild to moderate dehydration from clinically and lab test. plan: ECHO tele and vital monitor orthostatic vital check hydration with IVF (3)slurred speech 03/27 pt present some slurred speech compared with yesterday. but pt has hx of MS, and pt is on Xarelto, and more importantly pt has no unilateral weakness, and mental status is better we will order CT of head to r/o stroke, or mass, will followup, continue Xarelto as his home meds (4) Afib Conclusion/Plan: 03/27 stable, continue Xarelto pt has hx of Afib, now pt is has stable HR and BP resume home Cardizem and Metoprolol, home Xarelto. tele and vital monitor (5) Confused Conclusion/Plan: 03/27 pt's mental status is significantly improved today. continue support and oriented, and neuro check as well. it is likely from pt's baseline plus related dementia. pt has no focal neurological deficit. pt is on Xarelto neuro check nurse oriental to pt (6) HTN (hypertension) Conclusion/Plan: 03/27 stable, continue Cardizem and Metoprolol and hold Lisinopril now pt has slight lower BP at admission, now stable, resume home meds Cardizem and Metoprolol vital monitor pt (7) Dehydration Conclusion/Plan: 03/27 continue hydration for two bag of NS, lab monitor pt has slight elevated BUN and creatinine, clinic pt present dehydration. IVF of NS, precaution of fluid overload (8) Hyponatremia Conclusion/Plan: 03/27 resolved. Na is 135 today Na 134 today, likely from hypovolium hyponatremia hydration with IV of NS lab monitor (9) Hx of multiple sclerosis Conclusion/Plan: stable, no flare. closely monitor (10)S/P right knee aspiration pt has right knee joint infection (?) then had right knee aspiration recently in [facility], per pt's family report, and pt was d/c to [facility] for rehab. we will ask for medical record from [facility]. now pt's right knee seems stable, no erythema or warmth, with very mild swelling. pt did not complaint acute change. resume home meds Allopurinal, colchicine. Tylenol PRN for pain control as well. unfortunately we do not have orthopedics for consult now. (2) Syncope Qualifiers: Syncope type: unspecified Qualified Code(s): R55 - Syncope and collapse - Current Meds Current Meds: Current Medications Generic Name Dose Route Start Last Admin Trade Name Freq PRN Reason Stop Dose Admin Acetaminophen 650 mg 03/26/19 16:11 03/27/19 08:57 Tylenol PO 650 mg Q4HR PRN Administration Pain 1 to 4 Diltiazem HCl 120 mg 03/27/19 08:00 03/27/19 08:57 Cardizem Cd PO 120 mg QDBREAKFAST JUSTINE Administration Famotidine 20 mg 03/26/19 21:00 03/27/19 08:57 Pepcid PO 20 mg BID JUSTINE Administration Metoprolol Tartrate 100 mg 03/26/19 18:30 03/27/19 08:56 Lopressor PO 100 mg BIDWM JUSTINE Administration Rivaroxaban 20 mg 03/27/19 08:00 03/27/19 08:58 Xarelto PO 20 mg QDBREAKFAST JUSTINE Administration Sodium Chloride 10 ml 03/26/19 17:00 03/27/19 08:58 Normal Saline Flush 0.9% IVP 10 ml 0100,0900,1700 JUSTINE Administration Tramadol HCl 50 mg 03/26/19 16:21 03/27/19 04:26 Ultram PO 50 mg Q6H PRN Administration PAIN - Lab Result Fish Bone Diagrams: 03/27/19 04:25 03/27/19 04:25 - Additional Planning My Orders: My Active Orders 03/26/19 16:11 Telemetry- [RC] Q4HR Acetaminophen [Tylenol] 650 mg PO Q4HR PRN Ondansetron Inj [Zofran Inj] 4 mg IVP Q6HR PRN Sodium Chloride Flush 0.9% [Normal Saline Flush 0.9%] 10 ml IVP PRN PRN Zolpidem [Ambien] 5 mg PO QPM PRN 03/26/19 16:12 Activity Orders [RC] Q2HR IO [RC] IOSHIFT Initiate Bowel Care Protocol [RC] .protocol Initiate Line Care Protocol [RC] QSHIFT Initiate Personal Care Protoco [RC] .protocol Oxygen Therapy [RC] Routine Vital Signs [RC] Q4HR Code Status [OTHERS] Routine Condition of Patient [OTHERS] Routine DVT Prophylaxis [OTHERS] Routine 03/26/19 16:13 IV Insert [RC] .ONCE 03/26/19 16:14 SCDs [RC] QSHIFT 03/26/19 16:15 Echo Transthoracic Complete [ECHO] Stat 03/26/19 16:21 traMADol [Ultram] 50 mg PO Q6H PRN 03/26/19 17:00 Sodium Chloride Flush 0.9% [Normal Saline Flush 0.9%] 10 ml IVP 0100,0900,1700 03/26/19 17:35 Orthostatic [Vital Signs - Orthostatic] [RC] DAILY 03/26/19 17:55 Code Status [OTHERS] Routine 03/26/19 18:02 Nutrition Consult [CONS] Routine 03/26/19 18:22 Neuro Check [RC] QSHIFT 03/26/19 18:30 Metoprolol Tartrate [Lopressor] 100 mg PO BIDWM 03/26/19 21:00 Famotidine [Pepcid] 20 mg PO BID 03/26/19 Dinner Cardiac Diet [DIET] 03/27/19 07:37 Orthostatic [Vital Signs - Orthostatic] [RC] QSHIFT 03/27/19 08:00 Rivaroxaban [Xarelto] 20 mg PO QDBREAKFAST diltiaZEM CD [Cardizem Cd] 120 mg PO QDBREAKFAST 03/27/19 11:27 HEAD WO [CT] Stat 03/27/19 14:00 Ampicillin/Sulbactam [Unasyn] 3 gm Sodium Chloride 0.9% Minibag [Normal Saline 0.9% Minibag] 100 ml IV Q6HR 03/28/19 05:00 BMP - BASIC METABOLIC PANEL [CHEM] DAILYLAB CBC - COMP BLD CT W/AUTO DIFF [HEME] DAILYLAB 03/29/19 05:00 BMP - BASIC METABOLIC PANEL [CHEM] DAILYLAB CBC - COMP BLD CT W/AUTO DIFF [HEME] DAILYLAB 03/30/19 05:00 BMP - BASIC METABOLIC PANEL [CHEM] DAILYLAB CBC - COMP BLD CT W/AUTO DIFF [HEME] DAILYLAB Subjective - Subjective Patient Reports: Feeling Better, Cough Objective Vital Signs: Vital Signs - 24 hr 03/26/19 03/26/19 03/26/19 13:25 14:39 16:37 Temperature 36.1 C L Heart Rate 85 76 77 Heart Rate [ Brachial] Respiratory 18 18 18 Rate Blood Pressure 104/78 120/83 H 111/99 H Blood Pressure [Left Brachial artery] Blood Pressure [Right Brachial artery] O2 Saturation 100 95 95 03/26/19 03/26/19 03/26/19 17:00 18:09 21:00 Temperature 36.6 C 36.5 C Heart Rate Heart Rate [ 78 69 Brachial] Respiratory 18 18 Rate Blood Pressure 121/63 Blood Pressure 121/63 [Left Brachial artery] Blood Pressure 104/62 [Right Brachial artery] O2 Saturation 100 100 03/26/19 03/27/19 03/27/19 23:28 04:23 06:31 Temperature 36.7 C 36.5 C 36.5 C Heart Rate 65 Heart Rate [ 70 65 Brachial] Respiratory 20 20 20 Rate Blood Pressure Blood Pressure [Left Brachial artery] Blood Pressure 110/77 112/49 L [Right Brachial artery] O2 Saturation 98 100 100 03/27/19 03/27/19 07:49 08:56 Temperature 36.5 C Heart Rate Heart Rate [ 72 Brachial] Respiratory 18 Rate Blood Pressure 125/62 Blood Pressure [Left Brachial artery] Blood Pressure 125/62 [Right Brachial artery] O2 Saturation 98 Oxygen O2 Source Room air I&O (Last 24 Hrs): Intake and Output Totals x24h 03/25/19 03/26/19 03/27/19 23:59 23:59 23:59 Intake Total 858.405 6440.000 Output Total 100 300 Balance 780.567 995.000 General: Alert, Cooperative, No acute distress HEENT: Atraumatic, PERRLA Neck: Supple Lymphatic: no adenopathy Neuro: Alert, Non Focal Cardiovascular: Regular rate, Normal S1, Normal S2 Respiratory: Chest non-tender, No respiratory distress, Rhonchi Abdomen: Normal bowel sounds, Soft, No tenderness Extremities: Normal pulses - Results Results: Laboratory Results WBC 8.9 x10^3/uL (4.8-10.8) 03/27/19 04:25 RBC 3.49 10^6/uL (4.70-6.10) L 03/27/19 04:25 Hgb 10.2 g/dL (14.0-18.0) L 03/27/19 04:25 Hct 30.7 % (42.0-52.0) L 03/27/19 04:25 MCV 88.0 fL (80.0-94.0) 03/27/19 04:25 MCH 29.2 pg (27.0-31.0) 03/27/19 04:25 MCHC 33.2 g/dL (32.0-36.0) 03/27/19 04:25 RDW 13.9 % (12.0-15.0) 03/27/19 04:25 Plt Count 338 10^3/uL (130-450) 03/27/19 04:25 MPV 8.6 fL (7.4-11.4) 03/27/19 04:25 Neut # (Auto) 5.9 10^3/uL (1.5-6.6) 03/27/19 04:25 Lymph # (Auto) 1.9 10^3/uL (1.5-3.5) 03/27/19 04:25 Union # (Auto) 0.8 10^3/uL (0.0-1.0) 03/27/19 04:25 Eos # (Auto) 0.2 10^3/uL (0.0-0.7) 03/27/19 04:25 Baso # (Auto) 0.1 10^3/uL (0.0-0.1) 03/27/19 04:25 Absolute Nucleated RBC 0.00 x10^3/uL 03/27/19 04:25 Nucleated RBC % 0.0 /100WBC 03/27/19 04:25 Sodium 135 mmol/L (135-145) 03/27/19 04:25 Potassium 4.0 mmol/L (3.5-5.0) 03/27/19 04:25 Chloride 101 mmol/L (101-111) 03/27/19 04:25 Carbon Dioxide 23 mmol/L (21-32) 03/27/19 04:25 Anion Gap 11.0 (6-13) 03/27/19 04:25 BUN 29 mg/dL (6-20) H 03/27/19 04:25 Creatinine 1.1 mg/dL (0.6-1.2) 03/27/19 04:25 Estimated GFR (MDRD) 64 (>89) L 03/27/19 04:25 Glucose 116 mg/dL (70-100) H 03/27/19 04:25 Calcium 8.9 mg/dL (8.5-10.3) 03/27/19 04:25 Magnesium 1.8 mg/dL (1.7-2.8) 03/27/19 04:25 Total Bilirubin 0.6 mg/dL (0.2-1.0) 03/26/19 13:48 AST 27 IU/L (10-42) 03/26/19 13:48 ALT 18 IU/L (10-60) 03/26/19 13:48 Alkaline Phosphatase 95 IU/L (42-121) 03/26/19 13:48 Troponin I High Sens 8.9 ng/L (2.3-19.7) 03/26/19 13:48 Total Protein 7.4 g/dL (6.7-8.2) 03/26/19 13:48 Albumin 3.4 g/dL (3.2-5.5) 03/26/19 13:48 Globulin 4.0 g/dL (2.1-4.2) 03/26/19 13:48 Albumin/Globulin Ratio 0.9 (1.0-2.2) L 03/26/19 13:48 Lipase 38 U/L (22-51) 03/26/19 13:48 Urine Color DARK YELLOW 03/27/19 07:30 Urine Clarity CLEAR (CLEAR) 03/27/19 07:30 Urine pH 5.5 PH (5.0-7.5) 03/27/19 07:30 Ur Specific [place] 1.025 (1.002-1.030) 03/27/19 07:30 Urine Protein NEGATIVE mg/dL (NEGATIVE) 03/27/19 07:30 Urine Glucose (UA) NEGATIVE mg/dL (NEGATIVE) 03/27/19 07:30 Urine Ketones NEGATIVE mg/dL (NEGATIVE) 03/27/19 07:30 Urine Occult Blood NEGATIVE (NEGATIVE) 03/27/19 07:30 Urine Nitrite NEGATIVE (NEGATIVE) 03/27/19 07:30 Urine Bilirubin NEGATIVE (NEGATIVE) 03/27/19 07:30 Urine Urobilinogen 0.2 (NORMAL) E.U./dL (NORMAL) 03/27/19 07:30 Ur Leukocyte Esterase NEGATIVE (NEGATIVE) 03/27/19 07:30 Urine RBC 0-5 /HPF (0-5) 03/27/19 07:30 Urine WBC 0-3 /HPF (0-3) 03/27/19 07:30 Ur Squamous Epith Cells RARE Squamous (<= Few) 03/27/19 07:30 Urine Bacteria Rare /HPF (None Seen) 03/27/19 07:30 Urine Culture Comments NOT INDICATED 03/27/19 07:30 ABX Reporting Has patient been on IV antibiotics over the past 48 hours?: Yes Current Medications - Current Medications Current Medications: Active Medications Acetaminophen (Tylenol) 650 mg PO Q4HR PRN PRN Reason: Pain 1 to 4 Last Admin: 03/27/19 08:57 Dose: 650 mg Diltiazem HCl (Cardizem Cd) 120 mg PO QDBREAKFAST [facility] Last Admin: 03/27/19 08:57 Dose: 120 mg Famotidine (Pepcid) 20 mg PO BID [facility] Last Admin: 03/27/19 08:57 Dose: 20 mg Guaifenesin (Mucinex) 600 mg PO BID [facility] Ampicillin Sodium/Sulbactam (Sodium 3 gm/ Sodium Chloride) 100 mls @ 200 mls/hr IV Q6HR [facility] Metoprolol Tartrate (Lopressor) 100 mg PO BIDWM [facility] Last Admin: 03/27/19 08:56 Dose: 100 mg Ondansetron HCl (Zofran Inj) 4 mg IVP Q6HR PRN PRN Reason: Nausea / Vomiting Rivaroxaban (Xarelto) 20 mg PO QDBREAKFAST [facility] Last Admin: 03/27/19 08:58 Dose: 20 mg Sodium Chloride (Normal Saline Flush 0.9%) 10 ml IVP PRN PRN PRN Reason: NEEDED PER PROVIDER ORDERS Sodium Chloride (Normal Saline Flush 0.9%) 10 ml IVP 0100,0900,1700 JUSTINE Last Admin: 03/27/19 08:58 Dose: 10 ml Tramadol HCl (Ultram) 50 mg PO Q6H PRN PRN Reason: PAIN Last Admin: 03/27/19 04:26 Dose: 50 mg Zolpidem Tartrate (Ambien) 5 mg PO QPM PRN PRN Reason: Insomnia Lisinopril [Zestril] 20 mg PO QDBREAKFAST 02/08/19 Acetaminophen [Tylenol Extra Strength] 1,000 mg PO TID 03/26/19 Colchicine [Colcrys] 0.6 mg PO QDBREAKFAST 03/26/19 Diltiazem HCl [Cardizem LA] 120 mg PO QDBREAKFAST 03/26/19 Metoprolol Tartrate [Lopressor] 100 mg PO BIDWM 03/26/19 Multivitamin [Theragran] 1 each PO QDBREAKFAST 03/26/19 Potassium Chloride [K-Dur] 20 meq PO QDBREAKFAST 03/26/19 Rivaroxaban [Xarelto] 20 mg PO QDBREAKFAST 03/26/19 Saccharomyces Boulardii [Florastor] 250 mg PO QDBREAKFAST 03/26/19 Sodium Chloride [Salt Tab] 1 gm PO QDBREAKFAST 03/26/19 allopurinoL [Zyloprim] 100 mg PO QDBREAKFAST 03/26/19 traMADol [Ultram] 50 mg PO Q6H PRN MDD 300 MG 03/26/19
--- NOTE | 2019-03-27 13:34 | CT Report ---
Reason: slurred speech, acute Procedure Date: 03/27/2019 Accession Number: [id number] / [id number] Procedure: CT - HEAD WO CPT Code: Final Report FULL RESULT: EXAM: CT HEAD EXAM DATE: 03/27/2019 01:20 PM. CLINICAL HISTORY: Slurred speech, acute. COMPARISON: HEAD W/O 11/07/2018 8:21 PM. TECHNIQUE: Multiaxial CT images were obtained from the foramen magnum to the vertex. Reformats: Sagittal and coronal. IV contrast: None. In accordance with CT protocol optimization, one or more of the following dose reduction techniques were utilized for this exam: automated exposure control, adjustment of mA and/or KV based on patient size, or use of iterative reconstructive technique. FINDINGS: Parenchyma: No acute intracranial hemorrhage or mass effect. No midline shift. Stable moderate cortical atrophic changes, compatible with the patient's age. Interval decrease of opacification of the right frontal sinus. Minimal opacification of a few left ethmoid air cells. The mastoid air cells appear clear. The calvarium appears intact. IMPRESSION: No acute intracranial hemorrhage or mass effect detected. If symptoms persist, follow-up CTA of the head or brain MRI may be helpful for further evaluation. [facility]
[2019-03-27] MEDS: AMPICILLIN/SULBACTAM 3 GM in SODIUM CHLORIDE 0.9% MINIBAG 100 ML IV SCH ×2 (13:52→19:12)
[2019-03-27] MEDS: guaiFENesin 600 MG TABLET PO SCH ×2 (14:36→22:13)
[2019-03-28] MEDS: SODIUM CHLORIDE FLUSH 0.9% 10 ML SYRINGE IVP SCH ×4 (00:21→23:43)
[2019-03-28] MEDS: AMPICILLIN/SULBACTAM 3 GM in SODIUM CHLORIDE 0.9% MINIBAG 100 ML IV SCH ×5 (00:21→23:43)
[2019-03-28] MEDS ORDERED: SODIUM CHLORIDE 0.9% 500 ML IV ONE (00:28)
[2019-03-28] MEDS: ACETAMINOPHEN 325 MG TABLET PO PRN (01:51)
[2019-03-28] MEDS ORDERED: CARBOXYMETHYLCELLULOSE OPHTH DROPS EACHEYE PRN (02:39)
[2019-03-28 05:25] LABS: BASOPHILS % (AUTO) 0.4 %; EOSINOPHILS % (AUTO) 0.4 %; HGB - HEMOGLOBIN 9.6 g/dL (14.0-18.0); LYMPHOCYTES % (AUTO) 7.9 %; MEAN CORPUSCULAR HEMOGLOBIN 29.1 pg (27.0-31.0); MEAN CORPUSCULAR HGB CONC 32.8 g/dL (32.0-36.0); MEAN CORPUSCULAR VOLUME 88.8 fL (80.0-94.0); MEAN PLATELET VOLUME 9.1 fL (7.4-11.4); MONOCYTES % (AUTO) 4.7 %; NEUTROPHILS % (AUTO) 85.1 %; PLT - PLATELET COUNT 305 10^3/uL (130-450); RED CELL DISTRIBUTION WIDTH 13.8 % (12.0-15.0); WHITE BLOOD COUNT 27.6 x10^3/uL (4.8-10.8)
[2019-03-28 05:33] LABS: ABNORMAL LYMPHS % (MANUAL) 0 %; BAND NEUTROPHILS % (MANUAL) 0 %
[2019-03-28 05:49] LABS: EOSINOPHILS # (MANUAL) 0.3 10^3/uL (0-0.7); LYMPHOCYTES # (MANUAL) 2.8 10^3/uL (1.5-3.5); LYMPHOCYTES % (MANUAL) 10 %; MONOCYTES # (MANUAL) 1.4 10^3/uL (0.0-1.0)
[2019-03-28 05:50] LABS: DIFFERENTIAL COMMENT MANUAL DIFFERENTIAL; PLATELET ESTIMATE, MANUAL NORMAL (130-450,000) (NORMAL); PLATELET MORPHOLOGY NORMAL APPEARANCE (NORMAL); RBC MORPHOLOGY (MULTIPLE) NORMAL APPEARANCE (NORMAL)
[2019-03-28 06:07] LABS: CALCIUM 9.1 mg/dL (8.5-10.3)
[2019-03-28] MEDS: traMADol 50 MG TABLET PO PRN ×2 (08:29→20:46)
[2019-03-28] MEDS: FAMOTIDINE 20 MG TABLET PO SCH ×2 (08:29→20:46)
[2019-03-28] MEDS: METOPROLOL SUCCINATE 50 MG TABLET PO SCH ×2 (08:30→18:13)
[2019-03-28] MEDS: guaiFENesin 600 MG TABLET PO SCH ×2 (08:30→20:46)
[2019-03-28] MEDS: MULTIVITAMIN TABLET PO SCH (08:30)
[2019-03-28] MEDS: diltiaZEM CD 120 MG CAPSULE PO SCH (08:30)
[2019-03-28] MEDS: COLCHICINE 0.6 MG TABLET PO SCH (08:30)
[2019-03-28] MEDS: allopurinoL 100 MG TABLET PO SCH (08:30)
[2019-03-28] MEDS: RIVAROXABAN 10 MG TABLET PO SCH (08:30)
--- NOTE | 2019-03-28 12:16 | PROVIDER PROGRESS NOTE ---
Subjective - Prog Note Date Prog Note Date: 03/28/19 Prog Note Time: 12:14 - Subjective Pt reports feeling: Improved Subjective: Jake complains of a sore right knee, and is having some nausea this afternoon. His , and [id number], Kalpana are at the bedside and have been given a medical update. The patient will need a few days of IV antibiotics for his new diagnosis of aspiration pneumonia. We will do a bedside swallow evaluation on Saturday, and await blood cultures since his rise in WBCs were concerning. Current Medications - Current Medications Current Medications: Active Medications: Acetaminophen (Tylenol) 650 mg PO Q4HR PRN Allopurinol (Zyloprim) 100 mg PO QDBREAKFAST JUSTINE Carboxymethylcellulose (Refresh 1% Ophth Drops) 1 drops EACHEYE PRN PRN Colchicine (Colcrys) 0.6 mg PO QDBREAKFAST JUSTINE Diltiazem HCl (Cardizem Cd) 120 mg PO QDBREAKFAST JUSTINE Famotidine (Pepcid) 20 mg PO BID JUSTINE Guaifenesin (Mucinex) 600 mg PO BID JUSTINE Ampicillin Sodium/Sulbactam (Sodium 3 gm/ Sodium Chloride) 100 mls @ 200 mls/hr IV Q6HR JUSTINE Metoprolol Succinate (Toprol Xl) 100 mg PO BIDWM JUSTINE Multivitamins (Theragran) 1 tab PO QDBREAKFAST JUSTINE Ondansetron HCl (Zofran Inj) 4 mg IVP Q6HR PRN Rivaroxaban (Xarelto) 20 mg PO QDBREAKFAST JUSTINE Tramadol HCl (Ultram) 50 mg PO Q6H PRN HOME meds: Lisinopril [Zestril] 20 mg PO QDBREAKFAST 02/08/19 Acetaminophen [Tylenol Extra Strength] 1,000 mg PO TID 03/26/19 Colchicine [Colcrys] 0.6 mg PO QDBREAKFAST 03/26/19 Diltiazem HCl [Cardizem LA] 120 mg PO QDBREAKFAST 03/26/19 Metoprolol Tartrate [Lopressor] 100 mg PO BIDWM 03/26/19 Multivitamin [Theragran] 1 each PO QDBREAKFAST 03/26/19 Potassium Chloride [K-Dur] 20 meq PO QDBREAKFAST 03/26/19 Rivaroxaban [Xarelto] 20 mg PO QDBREAKFAST 03/26/19 Saccharomyces Boulardii [Florastor] 250 mg PO QDBREAKFAST 03/26/19 Sodium Chloride [Salt Tab] 1 gm PO QDBREAKFAST 03/26/19 allopurinoL [Zyloprim] 100 mg PO QDBREAKFAST 03/26/19 traMADol [Ultram] 50 mg PO Q6H PRN MDD 300 MG 03/26/19 Objective - Vital Signs/Intake & Output Reviewed Vital Signs: Yes Vital Signs: Vital Signs x48h Temp Pulse Pulse Resp BP Pulse Ox 03/28/19 10:32 81 03/28/19 08:40 36.4 C L 78 24 125/62 98 Intake & Output: Intake & Output 03/25/19 03/26/19 03/27/19 03/28/19 23:59 23:59 23:59 23:59 Intake Total 128.172 5709.000 1300 Output Total 100 300 250 Balance 415.548 3247.000 1050 - Objective General Appearance: positive: Alert, Mild distress Eyes Bilateral: positive: No lid inflammation Eyes: OU Conjunctivae pale ENT: positive: Pharyngeal erythema, Dry mucous membranes Neck: positive: No JVD, Trachea midline Respiratory: positive: Chest non-tender, No respiratory distress, Other (diminished with scattered crackles bilaterally) Cardiovascular: positive: No gallop, Irregularly irregular, Systolic murmur, Decreased pulse(s) Peripheral Pulses: 1+ Radial (R), 1+ Radial (L) Abdomen: positive: Non-tender, Nml bowel sounds, Other (rounded, soft) Back: positive: Nml inspection Skin: positive: No rash, Warm, Dry, Other (bronze skin tone) Extremities: positive: Nml appearance, No pedal edema, Joint swelling (Bilateral knee chronic joint swelling due to arthritis) Neurologic/Psychiatric: positive: Disoriented to place, Disoriented to time, Weakness, Sensory loss, Slurred/abnml speech, Depressed mood/affect, Other (baseline dementia, MS) Reflexes: Bicep (R): 2+, Bicep (L): 2+ - Lab Results Fish Bones: 03/28/19 05:05 03/28/19 05:05 Other Labs: Lab Results x24hrs 03/28/19 03/28/19 Range/Units 05:05 05:05 WBC 27.6 H (4.8-10.8) x10^3/uL RBC 3.30 L (4.70-6.10) 10^6/uL Hgb 9.6 L (14.0-18.0) g/dL Hct 29.3 L (42.0-52.0) % MCV 88.8 (80.0-94.0) fL MCH 29.1 (27.0-31.0) pg MCHC 32.8 (32.0-36.0) g/dL RDW 13.8 (12.0-15.0) % Plt Count 305 (130-450) 10^3/uL MPV 9.1 (7.4-11.4) fL Neut # (Auto) Not Reportable Lymph # (Auto) Not Reportable [place] # (Auto) Not Reportable Eos # (Auto) Not Reportable Baso # (Auto) Not Reportable Absolute Nucleated RBC Not Reportable Total Counted 100 Band Neuts % (Manual) 0 (0 - 10) % Abnorm Lymph % (Manual) 0 % Nucleated RBC % Not Reportable Neutrophils # (Manual) 23.2 H (1.5-6.6) 10^3/uL Lymphocytes # (Manual) 2.8 (1.5-3.5) 10^3/uL Monocytes # (Manual) 1.4 H (0.0-1.0) 10^3/uL Eosinophils # (Manual) 0.3 (0-0.7) 10^3/uL Basophils # (Manual) 0.0 (0-0.1) 10^3/uL Differential Comment MANUAL DIFFERENTIAL WBC Morphology NORMAL APPEARANCE (NORMAL) Platelet Estimate NORMAL (130-450,000) (NORMAL) Platelet Morphology NORMAL APPEARANCE (NORMAL) RBC Morph Micro Appear NORMAL APPEARANCE (NORMAL) Sodium 137 (135-145) mmol/L Potassium 3.9 (3.5-5.0) mmol/L Chloride 103 (101-111) mmol/L Carbon Dioxide 25 (21-32) mmol/L Anion Gap 9.0 (6-13) BUN 27 H (6-20) mg/dL Creatinine 1.0 (0.6-1.2) mg/dL Estimated GFR (MDRD) 71 L (>89) Glucose 108 H (70-100) mg/dL Calcium 9.1 (8.5-10.3) mg/dL ABX Reporting Has patient been on IV antibiotics over the past 48 hours?: Yes Sepsis Event Note (H) - Evaluation Current Stage of Sepsis: Ruled out Assessment/Plan - Problem List (1) Aspiration pneumonia Impression: -Chest x-ray shows infiltration on right lung, compatible with aspiration -Dysphagia ground diet at baseline -Resides at [facility] [place] [facility] of [facility] -Baseline non-ambulatory, complicated by dementia and multiple sclerosis -Continues on IV Unasyn, guaifenesin, respiratory cares -Continue with aspiration precautions -Anticipate swallow evaluation on Saturday Leukocytosis -WBC count increased from 8.9 to 27.6 today, elevated neut # of 23.2 -Afebrile, mild cough -Treating for aspiration PNA -Worrisome for recurrent right septic knee -Status post IV Rocephin completed while at [facility] [place] [facility] of [facility] via midline -Checking blood cultures x2 today -Routine labs, continue IV antibiotics Syncope -ECHO shows a preserved EF, pulmonary hypertension, moderate mitral and aortic regurg, similar to prior echo from July 2018 -EKG reveals stable without ST variation -Syncope may be due to early infection/dehydration -Continues on Cardizem and Metoprolol, holding lisinopril Slurred speech -Baseline dementia, and multiple sclerosis -Sluggish speech noted today, suspect silent aspiration -Awaiting swallow study -Likely due to acute illness/infection -Head CT unremarkable for any acute changes completed 03/27 Dehydration -Likely resulting in the syncopal episode leading to this admission -Eating breakfast, so IV fluids stopped -Watch closely for fevers, monitor for nausea/vomiting or diarrhea -Routine labs Acute metabolic encephalopathy -Baseline dementia and multiple sclerosis -Complicated by acute illness -No new focal neurological deficits -Continue neuro checks, changes in mental status Hyponatremia -Noted to be discharged from [facility] on 02/20/2019 -Started on salt tablets while at [facility] [place] [facility] -Admission serum sodium was 134, now 137 -Suspect fluid imbalance as the cause of this abnormality -Routine labs, holding home lisinopril Chronic atrial fibrillation -Telemetry discontinued as it has been unchanged, sinus rhythm in the 70-90s -Continues on Xarelto, metoprolol, and diltiazem Pulmonary hypertension -Preliminary echo shows an elevated RVSP at rest of 39 mmHg -Moderate RV enlargement, moderate RA enlargement -Enlarged abdominal girth on exam -Unknown if he has a history of ALONSO -No oxygen needs today, despite new aspiration pneumonia NSTEMI -Present on admission to [facility] on 02/09/2019 -Elevated troponin at [facility] ED was 711, then 1511, down trended and resolved -Echo showed an EF of 50%, inferior wall and septum was hypokinetic, now normal on this echo from 03/28/2019 -Cardiology was consulted, deferred ischemic work up and contributed elevated troponin likely secondary to rhabdo -Patient has been without chest pain, status post heparin drip that was transitioned to chronic Xarelto, continues while here -Stopped telemetry today due to no changes, rate controlled 70-90s -Continues on metoprolol (changed to succinate), and diltiazem HTN (hypertension) -Continues on Cardizem and Metoprolol, holding Lisinopril -Blood pressures today have been 125/62 & 121/57 -No longer on telemetry, last in sinus rhythm -Monitor vital signs, adjust anti-hypertensives as needed Generalized weakness -Was at [facility] for rehab prior to this admission -Family notes the patient has not been able to walk since January due to his ongoing issues with his right knee -PT/OT evaluation, likely return for ongoing rehab History of multiple sclerosis -Present on admission, stable, without recent flares -Not currently on medications due to recommendation by neurologist -Chronic & progressive weakness secondary to MS -MRI brain was negative for focal lesions or acute findings while at [facility] -Negative head CT from 03/27/2019 -Monitor for changes in mental status Septic joint of right knee -Status post arthroscopic washout on 02/17/2019 with orthopedic surgery while at [facility] -1 of 4 blood cultures were positive for strep canis, and was treated with IV Rocephin extended for 23 days past discharge (completed at [facility]) -Ongoing right knee pain today -Appears without infection, no surrounding erythema, warmth, or inflammation -Continues on home meds Allopurinol, colchicine -Await blood cultures -Consult orthopedic surgery if needed for possible joint aspiration on Saturday
[2019-03-29] MEDS ORDERED: SODIUM CHLORIDE 0.9% 500 ML ONE (01:20)
[2019-03-29 05:12] LABS: BASOPHILS % (AUTO) 0.3 %; HGB - HEMOGLOBIN 10.8 g/dL (14.0-18.0); LYMPHOCYTES % (AUTO) 4.2 %; MEAN CORPUSCULAR HEMOGLOBIN 28.3 pg (27.0-31.0); MEAN CORPUSCULAR VOLUME 85.8 fL (80.0-94.0); MEAN PLATELET VOLUME 9.3 fL (7.4-11.4); MONOCYTES % (AUTO) 5.9 %; NEUTROPHILS % (AUTO) 88.4 %; PLT - PLATELET COUNT 340 10^3/uL (130-450); RED BLOOD COUNT 3.81 10^6/uL (4.70-6.10); RED CELL DISTRIBUTION WIDTH 13.7 % (12.0-15.0); WHITE BLOOD COUNT 26.3 x10^3/uL (4.8-10.8)
[2019-03-29 05:22] LABS: CALCIUM 8.8 mg/dL (8.5-10.3); CREATININE 0.7 mg/dL (0.6-1.2)
[2019-03-29 05:24] LABS: ABNORMAL LYMPHS % (MANUAL) 0 %; BAND NEUTROPHILS % (MANUAL) 0 %
[2019-03-29 05:32] LABS: LYMPHOCYTES # (MANUAL) 2.1 10^3/uL (1.5-3.5); LYMPHOCYTES % (MANUAL) 8 %; MONOCYTES # (MANUAL) 0.8 10^3/uL (0.0-1.0)
[2019-03-29 05:33] LABS: DIFFERENTIAL COMMENT MANUAL DIFFERENTIAL; PLATELET ESTIMATE, MANUAL NORMAL (130-450,000) (NORMAL); PLATELET MORPHOLOGY NORMAL APPEARANCE (NORMAL); RBC MORPHOLOGY (MULTIPLE) NORMAL APPEARANCE (NORMAL)
[2019-03-29] MEDS: AMPICILLIN/SULBACTAM 3 GM in SODIUM CHLORIDE 0.9% MINIBAG 100 ML IV SCH ×4 (06:11→23:50)
[2019-03-29] MEDS: allopurinoL 100 MG TABLET PO SCH (09:04)
[2019-03-29] MEDS: RIVAROXABAN 10 MG TABLET PO SCH (09:04)
[2019-03-29] MEDS: METOPROLOL SUCCINATE 50 MG TABLET PO SCH ×2 (09:04→19:01)
[2019-03-29] MEDS: guaiFENesin 600 MG TABLET PO SCH ×2 (09:05→21:30)
[2019-03-29] MEDS: FAMOTIDINE 20 MG TABLET PO SCH ×2 (09:05→21:30)
[2019-03-29] MEDS: COLCHICINE 0.6 MG TABLET PO SCH (09:05)
[2019-03-29] MEDS: MULTIVITAMIN TABLET PO SCH (09:05)
[2019-03-29] MEDS: diltiaZEM CD 120 MG CAPSULE PO SCH (09:05)
[2019-03-29] MEDS: SODIUM CHLORIDE FLUSH 0.9% 10 ML SYRINGE IVP SCH ×3 (09:06→23:50)
[2019-03-29] MEDS: traMADol 50 MG TABLET PO PRN (11:29)
--- NOTE | 2019-03-29 12:43 | PROVIDER PROGRESS NOTE ---
Subjective - Prog Note Date Prog Note Date: 03/29/19 Prog Note Time: 12:42 - Subjective Pt reports feeling: Improved Subjective: Jake has no complaints today, and states that his right knee soreness has improved. He is having less nausea and has been tolerating his meals, although generally poor PO intake. His came for a visit today. The patient will need at least one more day of IV antibiotics to treat his aspiration pneumonia and a bedside swallow evaluation is pending for Saturday. The patient appears to be breathing well, denies shortness of breath and is not requiring supplemental oxygen. Current Medications - Current Medications Current Medications: Active Medications: Acetaminophen (Tylenol) 650 mg PO Q4HR PRN Allopurinol (Zyloprim) 100 mg PO QDBREAKFAST JUSTINE Carboxymethylcellulose (Refresh 1% Ophth Drops) 1 drops EACHEYE PRN PRN Colchicine (Colcrys) 0.6 mg PO QDBREAKFAST JUSTINE Diltiazem HCl (Cardizem Cd) 120 mg PO QDBREAKFAST JUSTINE Famotidine (Pepcid) 20 mg PO BID JUSTINE Guaifenesin (Mucinex) 600 mg PO BID JUSTINE Lisinopril 2.5 mg PO to start on 03/30 Ampicillin Sodium/Sulbactam (Sodium 3 gm/ Sodium Chloride) 100 mls @ 200 mls/hr IV Q6HR JUSTINE Metoprolol Succinate (Toprol Xl) 100 mg PO BIDWM JUSTINE Multivitamins (Theragran) 1 tab PO QDBREAKFAST JUSTINE Ondansetron HCl (Zofran Inj) 4 mg IVP Q6HR PRN Rivaroxaban (Xarelto) 20 mg PO QDBREAKFAST JUSTINE Tramadol HCl (Ultram) 50 mg PO Q6H PRN Spironolactone 25mg PO daily HOME meds: Lisinopril [Zestril] 20 mg PO QDBREAKFAST 02/08/19 Acetaminophen [Tylenol Extra Strength] 1,000 mg PO TID 03/26/19 Colchicine [Colcrys] 0.6 mg PO QDBREAKFAST 03/26/19 Diltiazem HCl [Cardizem LA] 120 mg PO QDBREAKFAST 03/26/19 Metoprolol Tartrate [Lopressor] 100 mg PO BIDWM 03/26/19 Multivitamin [Theragran] 1 each PO QDBREAKFAST 03/26/19 Potassium Chloride [K-Dur] 20 meq PO QDBREAKFAST 03/26/19 Rivaroxaban [Xarelto] 20 mg PO QDBREAKFAST 03/26/19 Saccharomyces Boulardii [Florastor] 250 mg PO QDBREAKFAST 03/26/19 Sodium Chloride [Salt Tab] 1 gm PO QDBREAKFAST 03/26/19 allopurinoL [Zyloprim] 100 mg PO QDBREAKFAST 03/26/19 traMADol [Ultram] 50 mg PO Q6H PRN MDD 300 MG 03/26/19 Objective - Vital Signs/Intake & Output Reviewed Vital Signs: Yes Vital Signs: Vital Signs x48h Temp Pulse Resp BP Pulse Ox 03/29/19 07:25 36.9 C 92 18 148/80 H 94 Intake & Output: Intake & Output 03/26/19 03/27/19 03/28/19 03/29/19 23:59 23:59 23:59 23:59 Intake Total 096.545 7767.000 2440 600 Output Total 100 300 850 400 Balance 774.001 4557.000 1590 200 - Objective General Appearance: positive: No acute distress, Alert Eyes Bilateral: positive: No lid inflammation Eyes: OU Conjunctivae pale ENT: positive: Pharyngeal erythema, Dry mucous membranes Neck: positive: Thyroid nml, No JVD, Trachea midline Respiratory: positive: Chest non-tender, No respiratory distress, Other (scattered crackles, bilaterally) Cardiovascular: positive: Regular rate & rhythm, No gallop, Systolic murmur, Decreased pulse(s) Peripheral Pulses: 1+ Radial (R), 1+ Radial (L) Abdomen: positive: No organomegaly, Nml bowel sounds, Other (rounded, soft) Back: positive: Nml inspection Skin: positive: No rash, Warm, Dry, Other (bronze toned skin) Extremities: positive: No pedal edema, Joint swelling (chronic joint swelling, no redness to right knee) Neurologic/Psychiatric: positive: Disoriented to place, Disoriented to time, Weakness, Sensory loss, Slurred/abnml speech, Depressed mood/affect, Other (baseline dementia) Reflexes: Bicep (R): 3+, Bicep (L): 3+ - Lab Results Fish Bones: 03/29/19 04:35 03/29/19 04:35 Other Labs: Lab Results x24hrs 03/29/19 03/29/19 Range/Units 04:35 04:35 WBC 26.3 H (4.8-10.8) x10^3/uL RBC 3.81 L (4.70-6.10) 10^6/uL Hgb 10.8 L (14.0-18.0) g/dL Hct 32.7 L (42.0-52.0) % MCV 85.8 (80.0-94.0) fL MCH 28.3 (27.0-31.0) pg MCHC 33.0 (32.0-36.0) g/dL RDW 13.7 (12.0-15.0) % Plt Count 340 (130-450) 10^3/uL MPV 9.3 (7.4-11.4) fL Neut # (Auto) Not Reportable Lymph # (Auto) Not Reportable [place] # (Auto) Not Reportable Eos # (Auto) Not Reportable Baso # (Auto) Not Reportable Absolute Nucleated RBC Not Reportable Total Counted 100 Band Neuts % (Manual) 0 (0 - 10) % Abnorm Lymph % (Manual) 0 % Nucleated RBC % Not Reportable Neutrophils # (Manual) 23.4 H (1.5-6.6) 10^3/uL Lymphocytes # (Manual) 2.1 (1.5-3.5) 10^3/uL Monocytes # (Manual) 0.8 (0.0-1.0) 10^3/uL Eosinophils # (Manual) 0.0 (0-0.7) 10^3/uL Basophils # (Manual) 0.0 (0-0.1) 10^3/uL Differential Comment MANUAL DIFFERENTIAL WBC Morphology NORMAL APPEARANCE (NORMAL) Platelet Estimate NORMAL (130-450,000) (NORMAL) Platelet Morphology NORMAL APPEARANCE (NORMAL) RBC Morph Micro Appear NORMAL APPEARANCE (NORMAL) Sodium 133 L (135-145) mmol/L Potassium 3.6 (3.5-5.0) mmol/L Chloride 98 L (101-111) mmol/L Carbon Dioxide 23 (21-32) mmol/L Anion Gap 12.0 (6-13) BUN 19 (6-20) mg/dL Creatinine 0.7 (0.6-1.2) mg/dL Estimated GFR (MDRD) 107 (>89) Glucose 134 H (70-100) mg/dL Calcium 8.8 (8.5-10.3) mg/dL ABX Reporting Has patient been on IV antibiotics over the past 48 hours?: Yes Sepsis Event Note (H) - Evaluation Current Stage of Sepsis: Ruled out Assessment/Plan - Problem List (1) Aspiration pneumonia Impression: -Chest x-ray shows infiltration on right lung, compatible with aspiration -Dysphagia ground diet until swallow evaluation -Resides at [facility] -Baseline non-ambulatory, complicated by dementia and multiple sclerosis -Continues on IV Unasyn, guaifenesin, respiratory cares -Continue with aspiration precautions -Anticipate swallow evaluation on Saturday Leukocytosis -WBC count decreased only slightly from 27.6 to 26.3 today -Afebrile, still with a cough -Treating for aspiration PNA -Status post IV Rocephin completed while at [facility] via midline -No growth from blood cultures x2 collected on 03/28 -Checking inflammatory markers in the AM, trending WBC counts -Routine labs, continue IV antibiotics Syncope -ECHO shows a preserved EF, pulmonary hypertension, moderate mitral and aortic regurg, similar to prior echo from July 2018 -EKG reveals stable without ST variation -Syncope may be due to early infection/dehydration -Continues on Cardizem and Metoprolol, resuming lisinopril, starting spironolactone Slurred speech -Baseline dementia, and multiple sclerosis -Sluggish speech noted today, suspect silent aspiration -Awaiting swallow study -Likely due to acute illness/infection -Head CT unremarkable for any acute changes completed 03/27 Dementia -Baseline declined cognitive functioning, poor memory, now with aspiration, and falls -Code status is DNR -Discuss with family if the patient continues to decline, maybe a Palliative care consult Acute metabolic encephalopathy -Baseline dementia and multiple sclerosis -Complicated by acute illness -No new focal neurological deficits -Continue to monitor for changes in mental status Hyponatremia -Noted to be discharged from [facility] on 02/20/2019 -Started on salt tablets while at [facility] -Admission serum sodium was 134, now 133 -Suspect fluid imbalance as the cause of this abnormality -Starting spironolactone tonight -Routine labs, resuming lisinopril, low dose in the AM Chronic atrial fibrillation -Heart rates 70-90s -Continues on Xarelto, metoprolol, and diltiazem Pulmonary hypertension -Preliminary echo shows an elevated RVSP at rest of 39 mmHg -Moderate RV enlargement, moderate RA enlargement -Enlarged abdominal girth on exam -Unknown if he has a history of ALONSO -Starting spironolactone tonight -No oxygen needs today, despite new aspiration pneumonia NSTEMI -Present on admission to [facility] on 02/09/2019 -Elevated troponin at [facility] ED was 711, then 1511, down trended and resolved -Echo showed an EF of 50%, inferior wall and septum was hypokinetic, now normal on this echo from 03/28/2019 -Cardiology was consulted, deferred ischemic work up and contributed elevated troponin likely secondary to rhabdo -Patient has been without chest pain, status post heparin drip that was transitioned to chronic Xarelto, continues while here -Stopped telemetry today due to no changes, rate controlled 70-90s -Continues on metoprolol (changed to succinate), and diltiazem HTN (hypertension) -Continues on Cardizem and Metoprolol -Resuming lisinopril in the AM (03/30), low dose 2.5 mg daily -Starting spironolactone tonight for mild fluid overload and low sodium -Blood pressures today have been 148/80 & 134/73 -No longer on telemetry, last in sinus rhythm -Monitor vital signs, adjust anti-hypertensives as needed Generalized weakness -Was at [facility] for rehab prior to this admission -Family notes the patient has not been able to walk since January due to his ongoing issues with his right knee -Good session with PT today, sat edge of bed with only one assist, could turn well in bed with minimal assist -Final impression is return to rehab for continued therapy -PT/OT to see daily, return to [facility] when medically cleared History of multiple sclerosis -Present on admission, stable, without recent flares -Not currently on medications due to recommendation by neurologist -Chronic & progressive weakness secondary to MS -MRI brain was negative for focal lesions or acute findings while at [facility] -Negative head CT from 03/27/2019 -Monitor for changes in mental status Septic joint of right knee -Resolved today, no s/s of acute infection -Status post arthroscopic washout on 02/17/2019 with orthopedic surgery while at [facility] -1 of 4 blood cultures were positive for strep canis while at [facility], and was treated with IV Rocephin extended for 23 days past discharge (completed at [facility]) -Ongoing right knee pain, but much improved -Appears without infection, no surrounding erythema, warmth, or inflammation -Continues on home meds Allopurinol, colchicine -Await blood cultures, no growth today -Consult orthopedic surgery if needed (not available until Saturday) Dehydration -Resolved -Watch closely for fevers, monitor for nausea/vomiting or diarrhea -Routine labs
[2019-03-29] MEDS: SPIRONOLACTONE 25 MG TABLET PO SCH (19:01)
[2019-03-30 05:03] LABS: BASOPHILS # (AUTO) 0.1 10^3/uL (0.0-0.1); BASOPHILS % (AUTO) 0.4 %; EOSINOPHILS % (AUTO) 0.1 %; HGB - HEMOGLOBIN 11.1 g/dL (14.0-18.0); LYMPHOCYTES # (AUTO) 1.7 10^3/uL (1.5-3.5); LYMPHOCYTES % (AUTO) 5.1 %; MEAN CORPUSCULAR HEMOGLOBIN 29.2 pg (27.0-31.0); MEAN CORPUSCULAR HGB CONC 33.4 g/dL (32.0-36.0); MEAN CORPUSCULAR VOLUME 87.4 fL (80.0-94.0); MONOCYTES # (AUTO) 2.3 10^3/uL (0.0-1.0); MONOCYTES % (AUTO) 7.1 %; NEUTROPHILS # (AUTO) 27.5 10^3/uL (1.5-6.6); NEUTROPHILS % (AUTO) 85.3 %; PLT - PLATELET COUNT 360 10^3/uL (130-450); RED CELL DISTRIBUTION WIDTH 14.1 % (12.0-15.0); WHITE BLOOD COUNT 32.3 x10^3/uL (4.8-10.8)
[2019-03-30] MEDS: AMPICILLIN/SULBACTAM 3 GM in SODIUM CHLORIDE 0.9% MINIBAG 100 ML IV SCH (05:29)
[2019-03-30 05:34] LABS: CALCIUM 8.5 mg/dL (8.5-10.3); CREATININE 0.8 mg/dL (0.6-1.2); CRP - C-REACTIVE PROTEIN 28.6 mg/dL (0-1.0); MAGNESIUM 1.7 mg/dL (1.7-2.8)
[2019-03-30] MEDS: CEFEPIME 2 GM in SODIUM CHLORIDE 0.9% MINIBAG 100 ML IV SCH ×2 (09:40→21:48)
[2019-03-30] MEDS: lisinopriL 20 MG TABLET PO SCH (09:40)
[2019-03-30] MEDS: RIVAROXABAN 10 MG TABLET PO SCH (09:40)
[2019-03-30] MEDS: SPIRONOLACTONE 25 MG TABLET PO SCH (09:41)
[2019-03-30] MEDS: METOPROLOL SUCCINATE 50 MG TABLET PO SCH ×2 (09:41→17:19)
[2019-03-30] MEDS: COLCHICINE 0.6 MG TABLET PO SCH (09:42)
[2019-03-30] MEDS: FAMOTIDINE 20 MG TABLET PO SCH ×2 (09:42→21:48)
[2019-03-30] MEDS: MULTIVITAMIN TABLET PO SCH (09:42)
[2019-03-30] MEDS: allopurinoL 100 MG TABLET PO SCH (09:42)
[2019-03-30] MEDS: guaiFENesin 600 MG TABLET PO SCH ×2 (09:42→21:48)
[2019-03-30] MEDS: diltiaZEM CD 120 MG CAPSULE PO SCH (09:42)
[2019-03-30] MEDS: SODIUM CHLORIDE FLUSH 0.9% 10 ML SYRINGE IVP SCH ×3 (09:43→23:52)
[2019-03-30] MEDS: traMADol 50 MG TABLET PO PRN ×2 (10:29→21:56)
[2019-03-30] MEDS: metroNIDAZOLE 500 MG/100 ML 500 MG/100 ML BAG IV SCH ×2 (14:32→22:29)
[2019-03-30] MEDS: ACETAMINOPHEN 325 MG TABLET PO PRN (17:18)
--- NOTE | 2019-03-30 18:13 | PROVIDER PROGRESS NOTE ---
Subjective - Prog Note Date Prog Note Date: 03/30/19 Prog Note Time: 12:00 - Subjective Pt reports feeling: Improved Subjective: Don's and close family friend, Kalpana were given a medical update and asked to speak with social work. Informed of lack of overall improvement, causing a change in IV treatment, ordering video swallow as we suspect silent aspiration. May need an indwelling lopez for suspicion of urinary retention caused by his neurogenic bladder exacerbated by chronic MS/dementia. Current Medications - Current Medications Current Medications: Active Medications: Acetaminophen (Tylenol) 650 mg PO Q4HR PRN Allopurinol (Zyloprim) 100 mg PO QDBREAKFAST JUSTINE Carboxymethylcellulose (Refresh 1% Ophth Drops) 1 drops EACHEYE PRN PRN Colchicine (Colcrys) 0.6 mg PO QDBREAKFAST JUSTINE Diltiazem HCl (Cardizem Cd) 120 mg PO QDBREAKFAST JUSTINE Famotidine (Pepcid) 20 mg PO BID JUSTINE Guaifenesin (Mucinex) 600 mg PO BID JUSTINE Lisinopril 2.5 mg PO to start on 03/30 Cefepime IV 2G BID Flagyl IV 500 mg Q8H Metoprolol Succinate (Toprol Xl) 100 mg PO BIDWM JUSTINE Multivitamins (Theragran) 1 tab PO QDBREAKFAST JUSTINE Ondansetron HCl (Zofran Inj) 4 mg IVP Q6HR PRN Rivaroxaban (Xarelto) 20 mg PO QDBREAKFAST JUSTINE Tramadol HCl (Ultram) 50 mg PO Q6H PRN Spironolactone 25mg PO daily HOME meds: Lisinopril [Zestril] 20 mg PO QDBREAKFAST 02/08/19 Acetaminophen [Tylenol Extra Strength] 1,000 mg PO TID 03/26/19 Colchicine [Colcrys] 0.6 mg PO QDBREAKFAST 03/26/19 Diltiazem HCl [Cardizem LA] 120 mg PO QDBREAKFAST 03/26/19 Metoprolol Tartrate [Lopressor] 100 mg PO BIDWM 03/26/19 Multivitamin [Theragran] 1 each PO QDBREAKFAST 03/26/19 Potassium Chloride [K-Dur] 20 meq PO QDBREAKFAST 03/26/19 Rivaroxaban [Xarelto] 20 mg PO QDBREAKFAST 03/26/19 Saccharomyces Boulardii [Florastor] 250 mg PO QDBREAKFAST 03/26/19 Sodium Chloride [Salt Tab] 1 gm PO QDBREAKFAST 03/26/19 allopurinoL [Zyloprim] 100 mg PO QDBREAKFAST 03/26/19 traMADol [Ultram] 50 mg PO Q6H PRN MDD 300 MG 03/26/19 Objective - Vital Signs/Intake & Output Reviewed Vital Signs: Yes Vital Signs: Vital Signs x48h Temp Pulse Resp BP Pulse Ox 03/30/19 17:28 36.9 C 74 20 127/49 L 100 Intake & Output: Intake & Output 03/27/19 03/28/19 03/29/19 03/30/19 23:59 23:59 23:59 23:59 Intake Total 2369.137 9056 1240 1420 Output Total 300 850 580 275 Balance 4010.704 6760 660 1145 - Objective General Appearance: positive: Alert, Moderate distress, Anxious, Lethargic Eyes Bilateral: positive: No lid inflammation Eyes: OU Conjunctivae pale ENT: positive: Pharynx nml, No signs of dehydration, Pharyngeal erythema, Dry mucous membranes Neck: positive: Thyroid nml, No JVD, Trachea midline, Stiff neck Respiratory: positive: Chest non-tender, No respiratory distress, Other (scattered crackles, intermittent) Cardiovascular: positive: Regular rate & rhythm, No gallop, Systolic murmur, Decreased pulse(s) Peripheral Pulses: 1+ Radial (R), 1+ Radial (L) Abdomen: positive: Non-tender, Nml bowel sounds, Other (rounded, soft) Back: positive: Nml inspection Skin: positive: No rash, Warm, Dry, Other (bronze toned) Extremities: positive: Non-tender, No pedal edema, Joint swelling (all extremities, decreased BRUCE to BUEs) Neurologic/Psychiatric: positive: Disoriented to person, Disoriented to place, Disoriented to time, Weakness, Sensory loss, Slurred/abnml speech, Depressed mood/affect, Other (baseline dementia, MS) Reflexes: Bicep (R): 3+, Bicep (L): 3+ - Lab Results Fish Bones: 03/30/19 05:00 03/30/19 05:00 Other Labs: Lab Results x24hrs 02/17/20 02/17/20 Range/Units 05:00 05:00 WBC 32.3 H (4.8-10.8) x10^3/uL RBC 3.80 L (4.70-6.10) 10^6/uL Hgb 11.1 L (14.0-18.0) g/dL Hct 33.2 L (42.0-52.0) % MCV 87.4 (80.0-94.0) fL MCH 29.2 (27.0-31.0) pg MCHC 33.4 (32.0-36.0) g/dL RDW 14.1 (12.0-15.0) % Plt Count 360 (130-450) 10^3/uL MPV 9.0 (7.4-11.4) fL Neut # (Auto) 27.5 H (1.5-6.6) 10^3/uL Lymph # (Auto) 1.7 (1.5-3.5) 10^3/uL [place] # (Auto) 2.3 H (0.0-1.0) 10^3/uL Eos # (Auto) 0.0 (0.0-0.7) 10^3/uL Baso # (Auto) 0.1 (0.0-0.1) 10^3/uL Absolute Nucleated RBC 0.00 x10^3/uL Nucleated RBC % 0.0 /100WBC Sodium 132 L (135-145) mmol/L Potassium 3.3 L (3.5-5.0) mmol/L Chloride 98 L (101-111) mmol/L Carbon Dioxide 24 (21-32) mmol/L Anion Gap 10.0 (6-13) BUN 18 (6-20) mg/dL Creatinine 0.8 (0.6-1.2) mg/dL Estimated GFR (MDRD) 92 (>89) Glucose 135 H (70-100) mg/dL Calcium 8.5 (8.5-10.3) mg/dL Magnesium 1.7 (1.7-2.8) mg/dL C-Reactive Protein 28.6 H (0-1.0) mg/dL ABX Reporting Has patient been on IV antibiotics over the past 48 hours?: Yes Sepsis Event Note (H) - Evaluation Current Stage of Sepsis: Ruled out Assessment/Plan - Problem List (1) Aspiration pneumonia Impression: -Chest x-ray shows infiltration on right lung, compatible with aspiration -A bedside swallow evaluation today notes no obvious s/s of aspiration -Moving to a video swallow evaluation as I suspect silent aspiration given his continued illness -WBC count is now increased from 26.3 to 32.3 -Resides at [facility] -Baseline non-ambulatory, complicated by dementia and multiple sclerosis -Continues on IV antibiotics, now changed to Cefepime & Flagyl, guaifenesin, respiratory cares Leukocytosis -WBC count decreased only slightly from 26.3 to 32.3 today -Afebrile, still with a cough -Treating for aspiration PNA -Status post IV Rocephin completed while at [facility] via midline -No growth from blood cultures x2 collected on 03/28 -Elevated CRP of 28.6 -Changed IV Unasyn to Cefepime & Flagyl -Routine labs, continue IV antibiotics Urinary retention -Family notes the patient has not had prior bladder complications -Suspect chronic neurogenic bladder since having MS -Bladder scans now ordered, concerning at ~220 mL tonight -May need to place an indwelling lopez Syncope -ECHO shows a preserved EF, pulmonary hypertension, moderate mitral and aortic regurg, similar to prior echo from July 2018 -EKG reveals stable without ST variation -Syncope may be due to early infection/dehydration -Continues on Cardizem and Metoprolol, lisinopril, & spironolactone Slurred speech -Baseline dementia, and multiple sclerosis -Sluggish speech noted, seems chronic -Likely due to acute illness/infection -Head CT unremarkable for any acute changes completed 03/27 Dementia -Baseline declined cognitive functioning, poor memory, now with aspiration, and falls -Code status is DNR -Discuss with family if the patient continues to decline, maybe a Palliative care consult Acute metabolic encephalopathy -Baseline dementia and multiple sclerosis -Complicated by acute illness -No new focal neurological deficits, sluggish & slurred speech continues -Continue to monitor for changes in mental status Hyponatremia -Noted to be discharged from [facility] on 02/20/2019 -Started on salt tablets while at [facility] -Admission serum sodium was 134, now 131 -Also with low magnesium & low potassium -Suspect fluid imbalance as the cause of this abnormality -Continues on spironolactone daily -Routine labs, resumed lisinopril today Chronic atrial fibrillation -Heart rates 70-90s -Continues on Xarelto, metoprolol, and diltiazem Pulmonary hypertension -Preliminary echo shows an elevated RVSP at rest of 39 mmHg -Moderate RV enlargement, moderate RA enlargement -Enlarged abdominal girth on exam -Unknown if he has a history of ALONSO -Continues on spironolactone -No oxygen needs today, despite under-treated aspiration pneumonia -Video swallow study as per speech-pending NSTEMI -Present on admission to [facility] on 02/09/2019 -Elevated troponin at [facility] ED was 711, then 1511, down trended and resolved -Echo showed an EF of 50%, inferior wall and septum was hypokinetic, now normal on this echo from 03/28/2019 -Cardiology was consulted, deferred ischemic work up and contributed elevated troponin likely secondary to rhabdo -Patient has been without chest pain, status post heparin drip that was transi tioned to chronic Xarelto, continues while here -Stopped telemetry today due to no changes, rate controlled 70-90s -Continues on metoprolol (changed to succinate), and diltiazem HTN (hypertension) -Continues on Cardizem and Metoprolol -Resumed lisinopril (03/30), low dose 2.5 mg daily -Continues on spironolactone tonight for mild fluid overload and low sodium -No longer on telemetry, last in sinus rhythm -Monitor vital signs, adjust anti-hypertensives as needed Generalized weakness -Was at [facility] for [facility] prior to this admission -Family notes the patient has not been able to walk since January due to his ongoing issues with his right knee -Good session with PT daily, sat edge of bed with only one assist, could turn well in bed with minimal assist -Pre-medicate for pain during sessions -[place] approves a rehab stay at [facility] after medically cleared -Final impression is return to rehab for continued therapy History of multiple sclerosis -Present on admission, stable, without recent flares -Not currently on medications due to recommendation by neurologist -Chronic & progressive weakness secondary to MS -MRI brain was negative for focal lesions or acute findings while at [facility] -Negative head CT from 03/27/2019 -Monitor for changes in mental status Septic joint of right knee -Resolved today, no s/s of acute infection -Status post arthroscopic washout on 02/17/2019 with orthopedic surgery while at [facility] -1 of 4 blood cultures were positive for strep canis while at [facility], and was treated with IV Rocephin extended for 23 days past discharge (completed at [facility]) -Ongoing right knee pain, but much improved -Appears without infection, no surrounding erythema, warmth, or inflammation -Continues on home meds Allopurinol, colchicine -Await blood cultures, no growth today -Consult orthopedic surgery if needed Dehydration -Resolved -Watch closely for fevers, monitor for nausea/vomiting or diarrhea -Routine labs
[2019-03-30] MEDS ORDERED: POTASSIUM CHLORIDE 20 MEQ TABLET PO ONE (18:47)
[2019-03-30] MEDS: MAGNESIUM OXIDE 400 MG TABLET PO SCH (19:16)
[2019-03-31] MEDS: metroNIDAZOLE 500 MG/100 ML 500 MG/100 ML BAG IV SCH ×3 (05:52→22:51)
[2019-03-31] MEDS: ACETAMINOPHEN 325 MG TABLET PO PRN (05:52)
[2019-03-31] MEDS: diltiaZEM CD 120 MG CAPSULE PO SCH (09:02)
[2019-03-31] MEDS: allopurinoL 100 MG TABLET PO SCH (09:02)
[2019-03-31] MEDS: MULTIVITAMIN TABLET PO SCH (09:02)
[2019-03-31] MEDS: RIVAROXABAN 10 MG TABLET PO SCH (09:02)
[2019-03-31] MEDS: MAGNESIUM OXIDE 400 MG TABLET PO SCH ×2 (09:02→17:47)
[2019-03-31] MEDS: FAMOTIDINE 20 MG TABLET PO SCH ×2 (09:04→21:51)
[2019-03-31] MEDS: SPIRONOLACTONE 25 MG TABLET PO SCH (09:04)
[2019-03-31] MEDS: COLCHICINE 0.6 MG TABLET PO SCH (09:04)
[2019-03-31] MEDS: lisinopriL 20 MG TABLET PO SCH (09:04)
[2019-03-31] MEDS: METOPROLOL SUCCINATE 50 MG TABLET PO SCH (09:04)
[2019-03-31] MEDS: guaiFENesin 600 MG TABLET PO SCH ×2 (09:04→21:51)
[2019-03-31] MEDS: CEFEPIME 2 GM in SODIUM CHLORIDE 0.9% MINIBAG 100 ML IV SCH ×2 (09:04→21:51)
[2019-03-31] MEDS: SODIUM CHLORIDE FLUSH 0.9% 10 ML SYRINGE IVP SCH ×2 (09:05→17:49)
[2019-03-31 10:05] LABS: BASOPHILS # (AUTO) 0.1 10^3/uL (0.0-0.1); BASOPHILS % (AUTO) 0.4 %; EOSINOPHILS # (AUTO) 0.1 10^3/uL (0.0-0.7); EOSINOPHILS % (AUTO) 0.5 %; HGB - HEMOGLOBIN 9.8 g/dL (14.0-18.0); LYMPHOCYTES # (AUTO) 1.5 10^3/uL (1.5-3.5); MEAN CORPUSCULAR HEMOGLOBIN 28.9 pg (27.0-31.0); MEAN CORPUSCULAR HGB CONC 33.1 g/dL (32.0-36.0); MEAN CORPUSCULAR VOLUME 87.3 fL (80.0-94.0); MEAN PLATELET VOLUME 9.2 fL (7.4-11.4); MONOCYTES # (AUTO) 1.6 10^3/uL (0.0-1.0); MONOCYTES % (AUTO) 8.9 %; NEUTROPHILS # (AUTO) 14.8 10^3/uL (1.5-6.6); NEUTROPHILS % (AUTO) 80.1 %; PLT - PLATELET COUNT 373 10^3/uL (130-450); RED BLOOD COUNT 3.39 10^6/uL (4.70-6.10); RED CELL DISTRIBUTION WIDTH 14.1 % (12.0-15.0); WHITE BLOOD COUNT 18.5 x10^3/uL (4.8-10.8)
[2019-03-31] MEDS: traMADol 50 MG TABLET PO PRN (10:08)
[2019-03-31 10:16] LABS: CALCIUM 8.5 mg/dL (8.5-10.3); CREATININE 0.9 mg/dL (0.6-1.2)
[2019-03-31] MEDS ORDERED: POTASSIUM CHLORIDE 20 MEQ TABLET PO ONE (10:39)
[2019-03-31 10:40] LABS: PLATELET ESTIMATE, MANUAL NORMAL (130-450,000) (NORMAL); PLATELET MORPHOLOGY 1+ LARGE PLATELETS (NORMAL); RBC MORPHOLOGY (MULTIPLE) 1+ POLYCHROMASIA (NORMAL)
[2019-03-31] MEDS ORDERED: LIDOCAINE 2% URO-JET 5 ML SYRINGE UR ONE (12:29)
[2019-03-31] MEDS ORDERED: oxyCODONE 5 MG TABLET PO PRN (12:30)
--- NOTE | 2019-03-31 15:00 | PROVIDER PROGRESS NOTE ---
Subjective - Prog Note Date Prog Note Date: 03/31/19 Prog Note Time: 15:00 - Subjective Pt reports feeling: Improved Subjective: Danish complains of sitting in the chair too long, and feels tired when in the chair too long. He admits to not being able to urinate, although has urgency with frequency. He states that he thinks he first had MS in the year 1997, or 1981. He appears much improved overall from previous days. A lopez was inserted for ongoing urinary retention and to treat his neurogenic bladder. Current Medications - Current Medications Current Medications: Active Medications: Acetaminophen (Tylenol) 650 mg PO Q4HR PRN Allopurinol (Zyloprim) 100 mg PO QDBREAKFAST JUSTINE Carboxymethylcellulose (Refresh 1% Ophth Drops) 1 drops EACHEYE PRN PRN Colchicine (Colcrys) 0.6 mg PO QDBREAKFAST JUSTINE Diltiazem HCl (Cardizem Cd) 120 mg PO QDBREAKFAST JUSTINE Famotidine (Pepcid) 20 mg PO BID JUSTINE Guaifenesin (Mucinex) 600 mg PO BID JUSTINE Lisinopril 2.5 mg PO Cefepime IV 2G BID Flagyl 500mg IV Q8H Metoprolol Succinate (Toprol Xl) 100 mg PO BIDWM JUSTINE Magnesium 400 mg PO BID Multivitamins (Theragran) 1 tab PO QDBREAKFAST JUSTINE Ondansetron HCl (Zofran Inj) 4 mg IVP Q6HR PRN Oxycodone 10 mg PO Q4H, PRN Potassium 40 mEq PO x1 Rivaroxaban (Xarelto) 20 mg PO QDBREAKFAST [facility] Spironolactone 25mg PO daily HOME meds: Lisinopril [Zestril] 20 mg PO QDBREAKFAST 02/08/19 Acetaminophen [Tylenol Extra Strength] 1,000 mg PO TID 03/26/19 Colchicine [Colcrys] 0.6 mg PO QDBREAKFAST 03/26/19 Diltiazem HCl [Cardizem LA] 120 mg PO QDBREAKFAST 03/26/19 Metoprolol Tartrate [Lopressor] 100 mg PO BIDWM 03/26/19 Multivitamin [Theragran] 1 each PO QDBREAKFAST 03/26/19 Potassium Chloride [K-Dur] 20 meq PO QDBREAKFAST 03/26/19 Rivaroxaban [Xarelto] 20 mg PO QDBREAKFAST 03/26/19 Saccharomyces Boulardii [Florastor] 250 mg PO QDBREAKFAST 03/26/19 Sodium Chloride [Salt Tab] 1 gm PO QDBREAKFAST 03/26/19 allopurinoL [Zyloprim] 100 mg PO QDBREAKFAST 03/26/19 traMADol [Ultram] 50 mg PO Q6H PRN MDD 300 MG 03/26/19 Objective - Vital Signs/Intake & Output Reviewed Vital Signs: Yes Vital Signs: Vital Signs x48h Temp Pulse Resp BP Pulse Ox 03/31/19 08:33 36.2 C L 68 18 104/55 L 93 Intake & Output: Intake & Output 03/28/19 03/29/19 03/30/19 03/31/19 23:59 23:59 23:59 23:59 Intake Total 2440 1240 2120 980 Output Total 850 580 725 275 Balance 1738 511 5673 705 - Objective General Appearance: positive: No acute distress, Alert Eyes Bilateral: positive: PERRL, No lid inflammation Eyes: OU Conjunctivae pale ENT: positive: Pharyngeal erythema, Dry mucous membranes Neck: positive: No JVD, Trachea midline Respiratory: positive: Chest non-tender, No respiratory distress, Breath sounds nml, Other (coarse crackles, bilaterally) Cardiovascular: positive: Regular rate & rhythm, No gallop, Systolic murmur, Decreased pulse(s) Peripheral Pulses: 1+ Radial (R), 1+ Radial (L) Abdomen: positive: Non-tender, Nml bowel sounds, Other (rounded, soft) Back: positive: Nml inspection Skin: positive: No rash, Warm, Dry, Other (pale, slightly bronze) Extremities: positive: No pedal edema, Joint swelling (bilateral knees), Other (poor ROM, most joints are very stiff) Neurologic/Psychiatric: positive: Disoriented to place, Disoriented to time, Weakness, Sensory loss, Slurred/abnml speech (slurred, garbled speech), Depressed mood/affect Reflexes: Bicep (R): 2+, Bicep (L): 2+ - Lab Results Fish Bones: 03/31/19 10:02 03/31/19 10:02 Other Labs: Lab Results x24hrs 03/31/19 03/31/19 Range/Units 10:02 10:02 WBC 18.5 H (4.8-10.8) x10^3/uL RBC 3.39 L (4.70-6.10) 10^6/uL Hgb 9.8 L (14.0-18.0) g/dL Hct 29.6 L (42.0-52.0) % MCV 87.3 (80.0-94.0) fL MCH 28.9 (27.0-31.0) pg MCHC 33.1 (32.0-36.0) g/dL RDW 14.1 (12.0-15.0) % Plt Count 373 (130-450) 10^3/uL MPV 9.2 (7.4-11.4) fL Neut # (Auto) 14.8 H (1.5-6.6) 10^3/uL Lymph # (Auto) 1.5 (1.5-3.5) 10^3/uL [place] # (Auto) 1.6 H (0.0-1.0) 10^3/uL Eos # (Auto) 0.1 (0.0-0.7) 10^3/uL Baso # (Auto) 0.1 (0.0-0.1) 10^3/uL Absolute Nucleated RBC 0.00 x10^3/uL Nucleated RBC % 0.0 /100WBC Manual Slide Review Indicated WBC Morphology NORMAL APPEARANCE (NORMAL) Platelet Estimate NORMAL (130-450,000) (NORMAL) Platelet Morphology 1+ LARGE PLATELETS (NORMAL) RBC Morph Micro Appear 1+ POLYCHROMASIA (NORMAL) Sodium 134 L (135-145) mmol/L Potassium 3.2 L (3.5-5.0) mmol/L Chloride 100 L (101-111) mmol/L Carbon Dioxide 23 (21-32) mmol/L Anion Gap 11.0 (6-13) BUN 26 H (6-20) mg/dL Creatinine 0.9 (0.6-1.2) mg/dL Estimated GFR (MDRD) 80 L (>89) Glucose 123 H (70-100) mg/dL Calcium 8.5 (8.5-10.3) mg/dL ABX Reporting Has patient been on IV antibiotics over the past 48 hours?: Yes Sepsis Event Note (H) - Evaluation Current Stage of Sepsis: Ruled out Assessment/Plan - Problem List (1) Aspiration pneumonia Impression: -Chest x-ray shows infiltration on right lung, compatible with aspiration -A bedside swallow evaluation today notes no obvious s/s of aspiration -Moving to a video swallow evaluation as I suspect silent aspiration given his continued illness -WBC count is now increased from 32.3 to 18.5 -Resides at [facility] -Baseline non-ambulatory, complicated by dementia and multiple sclerosis -Continues on IV antibiotics, Cefepime & Flagyl, guaifenesin, respiratory cares Leukocytosis -WBC count decreased from 32.3 to 18.5 today -Afebrile, still with a cough -Treating for aspiration PNA -Status post IV Rocephin completed while at [facility] via midline -No growth from blood cultures x2 collected on 03/28 -Elevated CRP of 28.6 -Changed IV Unasyn to Cefepime & Flagyl -Video swallow study is pending -Routine labs, continue IV antibiotics Neurogenic bladder -Suspect chronic neurogenic bladder since having MS -Bladder scans continued to be greater than 200 mL -Indwelling lopez placed with Uro-jet prior, likely life long -Maintain lopez, I/Os, daily weights Syncope -ECHO shows a preserved EF, pulmonary hypertension, moderate mitral and aortic regurg, similar to prior echo from July 2018 -EKG reveals stable without ST variation -Syncope may be due to early infection/dehydration -Continues on Cardizem and Metoprolol, lisinopril, & spironolactone Slurred speech -Baseline dementia, and multiple sclerosis -Sluggish speech noted, seems chronic -Likely due to acute illness/infection -Head CT unremarkable for any acute changes completed 03/27 Dementia -Baseline declined cognitive functioning, poor memory, now with aspiration, and falls -Code status is DNR -Discuss with family if the patient continues to decline, maybe a Palliative care consult Severe Protein calorie malnutrition -Patient has had at least a 15% weight loss in the past 6 months -Nutritional intake of under 50% of the recommended intake for the past 2 weeks -Bedridden with reduced functional capacity -Biostatistics Professor to follow, checking iron panel Normocytic anemia -H/H is variable, 9.8/29.6 today -MCV normal at 87.3 -Iron panel for the AM -Routine labs, transfuse for hemoglobin less than 7.0 Acute metabolic encephalopathy -Baseline dementia and multiple sclerosis -Complicated by acute illness -No new focal neurological deficits, sluggish & slurred speech continues -More speech today, seems to comprehend -Continue to monitor for changes in mental status Hyponatremia -Noted to be discharged from [facility] on 02/20/2019 -Started on salt tablets while at [facility] -Admission serum sodium was 134, now 134 -Also with low magnesium & low potassium -Suspect fluid imbalance as the cause of this abnormality -Continues on spironolactone & low dose lisinopril daily -Routine labs Chronic atrial fibrillation -Heart rates 70-90s -Continues on Xarelto, metoprolol, and diltiazem Pulmonary hypertension -Preliminary echo shows an elevated RVSP at rest of 39 mmHg -Moderate RV enlargement, moderate RA enlargement -Enlarged abdominal girth on exam -Unknown if he has a history of ALONSO -Continues on spironolactone -No oxygen needs today, despite under-treated aspiration pneumonia -Video swallow study as per speech-pending NSTEMI -Present on admission to [facility] on 02/09/2019 -Elevated troponin at [facility] ED was 711, then 1511, down trended and resolved -Echo showed an EF of 50%, inferior wall and septum was hypokinetic, now normal on this echo from 03/28/2019 -Cardiology was consulted, deferred ischemic work up and contributed elevated troponin likely secondary to rhabdo -Patient has been without chest pain, status post heparin drip that was transitioned to chronic Xarelto, continues while here -Rate controlled 70-80s -Continues on metoprolol (changed to succinate), and diltiazem HTN (hypertension) -Continues on Cardizem and Metoprolol -Resumed lisinopril (03/30), low dose 2.5 mg daily -Continues on spironolactone tonight for mild fluid overload and low sodium -Monitor vital signs, adjust anti-hypertensives as needed Generalized weakness -Was at [facility] for rehab prior to this admission -Family notes the patient has not been able to walk since January due to his ongoing issues with his right knee -Good session with PT daily, sat edge of bed with only one assist, could turn well in bed with minimal assist -Pre-medicate for pain during sessions -[place] approves a rehab stay at [facility] after medically cleared -Final impression is return to rehab for continued therapy History of multiple sclerosis -Present on admission, stable, without recent flares -Not currently on medications due to recommendation by neurologist -Chronic & progressive weakness secondary to MS -MRI brain was negative for focal lesions or acute findings while at [facility] -Negative head CT from 03/27/2019 -Consequently has a neurogenic bladder requiring an indwelling lopez -Monitor for changes in mental status Diet controlled diabetes mellitus type 2 -Found in reviewing outside chart -Early AM sugars have been 100's, today 123 -Poor overall nutrition Septic joint of right knee -Resolved, no s/s of acute infection -Status post arthroscopic washout on 02/17/2019 with orthopedic surgery while at [facility] -1 of 4 blood cultures were positive for strep canis while at [facility], and was treated with IV Rocephin extended for 23 days past discharge (completed at [facility]) -Ongoing bilateral knee pain -Appears without infection, no surrounding erythema, warmth, or inflammation -Continues on home meds Allopurinol, colchicine, changed tramadol to something stronger- oxycodone -Blood cultures show no growth -Consult orthopedic surgery if needed Dehydration -Resolved -Watch closely for fevers, monitor for nausea/vomiting or diarrhea -Routine labs
[2019-04-01] MEDS: SODIUM CHLORIDE FLUSH 0.9% 10 ML SYRINGE IVP SCH ×2 (00:52→09:33)
[2019-04-01] MEDS: ACETAMINOPHEN 325 MG TABLET PO PRN (00:54)
[2019-04-01 05:29] LABS: BASOPHILS # (AUTO) 0.1 10^3/uL (0.0-0.1); BASOPHILS % (AUTO) 0.5 %; EOSINOPHILS # (AUTO) 0.1 10^3/uL (0.0-0.7); EOSINOPHILS % (AUTO) 0.8 %; HGB - HEMOGLOBIN 8.8 g/dL (14.0-18.0); LYMPHOCYTES # (AUTO) 2.3 10^3/uL (1.5-3.5); LYMPHOCYTES % (AUTO) 13.2 %; MEAN CORPUSCULAR HEMOGLOBIN 27.6 pg (27.0-31.0); MEAN CORPUSCULAR HGB CONC 32.4 g/dL (32.0-36.0); MEAN CORPUSCULAR VOLUME 85.3 fL (80.0-94.0); MEAN PLATELET VOLUME 9.6 fL (7.4-11.4); MONOCYTES # (AUTO) 1.3 10^3/uL (0.0-1.0); MONOCYTES % (AUTO) 7.7 %; NEUTROPHILS # (AUTO) 12.9 10^3/uL (1.5-6.6); NEUTROPHILS % (AUTO) 75.3 %; PLT - PLATELET COUNT 361 10^3/uL (130-450); RED BLOOD COUNT 3.19 10^6/uL (4.70-6.10); RED CELL DISTRIBUTION WIDTH 14.1 % (12.0-15.0); WHITE BLOOD COUNT 17.1 x10^3/uL (4.8-10.8)
[2019-04-01 05:53] LABS: ALBUMIN 2.1 g/dL (3.2-5.5); ALBUMIN/GLOBULIN RATIO 0.6 (1.0-2.2); BILIRUBIN,TOTAL 0.9 mg/dL (0.2-1.0); CALCIUM 8.4 mg/dL (8.5-10.3); CREATININE 0.7 mg/dL (0.6-1.2); MAGNESIUM 1.8 mg/dL (1.7-2.8); TOTAL PROTEIN 5.6 g/dL (6.7-8.2); URIC ACID 3.8 mg/dL (2.6-7.2)
[2019-04-01] MEDS: metroNIDAZOLE 500 MG/100 ML 500 MG/100 ML BAG IV SCH (06:09)
[2019-04-01 06:22] LABS: HB2 TOTAL 9.3 g/dL; HEMOGLOBIN A1C 0.28 g/dL; HEMOGLOBIN A1C % 4.9 % (4.6-6.2)
[2019-04-01 07:47] VITALS: BP 115/55
[2019-04-01] MEDS ORDERED: METOPROLOL SUCCINATE 50 MG TABLET PO SCH (08:00)
--- NOTE | 2019-04-01 08:27 | Discharge Plan ---
"Discharge Plan for SNF / [facility] - Discharge Plan And Transition Orders Problem Reviewed?: Yes Disposition: 03 SNF DC/Xfer Condition: Good Allergies and Adverse Reactions: Allergies Allergy/AdvReac Type Severity Reaction Status Date / Time No Known Drug Allergies Allergy Verified 03/26/19 13:34 Health Concerns: Progressive dementia Aspiration risk Generalized weakness Indwelling lopez from neurogenic bladder Plan of Treatment: Continue with the antibiotics for another 8 days Maintain the indwelling lopez, likely life long due to progressive MS/dementia Proceed with physical therapy with the goal of returning home Care Goals: Completely treat the pneumonia Prevent recurrence of pneumonia by following aspiration precautions with meals PT to become as independent as possible Assessment: The patient was admitted from [facility] after a witnessed loss of consciousness. He was worked up for syncope, which was concluded to be caused by hypotension, early aspiration pneumonia. He was changed to inpatient after discovering the aspiration pneumonia. A bedside swallow study, followed by a video swallow was performed for a suspicion of silent aspiration, see instructions for modified diet. He continued to retain urine via bladder scans, so an indwelling lopez was placed for his neurogenic bladder caused by progressive MS. He had bilateral knee pain that was first treated with tramadol, changed to oxycodone for more effectiveness. He was continued on all of his gout medications. He had profound confusion for nearly all of his hospital stay, but this morning is quite improved, speaking in full sentences, saying things within context, and is orientated. He has baseline dementia, so he cannot elaborate on his medical history or why he came back to the hospital. He was visited by his daily, and his sister Kalpana a few times. He is medically stable, progressing with physical therapy and can return to [facility] for continued physical & speech therapy. - SNF / [facility] Transition Orders Admit to (Facility): [facility] Under the care of (Name): Kamini Bragg Discharge Diagnosis: Aspiration pneumonia Leukocytosis Neurogenic bladder Syncope Slurred speech Dementia Severe protein-calorie malnutrition Normocytic anemia Acute metabolic encephalopathy Hyponatremia Chronic atrial fibrillation Pulmonary hypertension NSTEMI (non-ST elevated myocardial infarction) HTN (hypertension) Generalized weakness Hx of multiple sclerosis Diet-controlled type 2 diabetes mellitus Septic joint of right knee joint Dehydration Medication Orders: PLEASE REFER TO THE DISCHARGE MEDICATION LIST. - Medications New Prescriptions: guaiFENesin [Mucinex] 600 mg PO BID #60 tablet levoFLOXacin [Levofloxacin] 500 mg PO DAILY #8 tablet Lisinopril [Zestril] 2.5 mg PO DAILY #30 tablet Magnesium Oxide [Mag Ox] 400 mg PO BIDWM #60 tablet Metoprolol Succinate [Toprol Xl] 50 mg PO BIDWM #60 tablet oxyCODONE [Roxicodone] 10 mg PO Q6H #21 tablet polyethylene glycoL 3350 [Miralax] 17 gm PO DAILY #30 packet Spironolactone [Aldactone] 25 mg PO DAILY #30 tablet - Diet Texture: [facility] Liquids: Thin May have monthly special meal: Yes - Therapies | Activity Therapy: Evaluation | Treat if indicated: Speech, PT, OT, Swallowing / ST Rehabilitation Potential: Maximize functional status, Return to independent living Activity: Activity as Tolerated Weight Bearing: Full Weight Assistance Devices: Wheelchair, Walker Additional Instructions: Recommendations from video swallow study with speech therapist: 1. dysphagia mechanical soft diet, extra sauces and gravies for ease of chewing 2. thin liquids 3. meals up in chair, sitting at 90 degrees upright. 4. meds in applesauce 5. follow up by speech pathology after transfer to [facility] to help with safe swallow strategies and diet texture progression."
[2019-04-01] MEDS ORDERED: polyethylene glycoL 3350 17 GM PACKET PO SCH (09:00)
--- NOTE | 2019-04-01 09:21 | XRAY Report ---
Reason: Video swallow study please Procedure Date: 03/31/2019 Accession Number: [id number] / [id number] Procedure: FL - Modified Barium Swallow W/SP CPT Code: Final Report FULL RESULT: EXAM: MODIFIED BARIUM SWALLOW EXAM DATE: 03/31/2019 04:55 PM. CLINICAL HISTORY: Pneumonia. COMPARISON: None. TECHNIQUE: Under the direction of speech pathology, patient swallowed various consistencies of barium under lateral fluoroscopic observation of the neck. Fluoroscopy Time: 2.2 minutes. Number of Images: 128. FINDINGS: Swallowing Mechanism: Normal oral phase and swallowing reflex. Airway Protection: Normal epiglottic motion. There is tracheal penetration without aspiration. Pharynx: Normal. No significant vallecular or piriform sinus contrast pooling. Other: None. IMPRESSION: Penetration without aspiration. RADIA
[2019-04-01] MEDS: diltiaZEM CD 120 MG CAPSULE PO SCH (09:30)
[2019-04-01] MEDS: MAGNESIUM OXIDE 400 MG TABLET PO SCH (09:30)
[2019-04-01] MEDS: guaiFENesin 600 MG TABLET PO SCH (09:30)
[2019-04-01] MEDS: SPIRONOLACTONE 25 MG TABLET PO SCH (09:30)
[2019-04-01] MEDS: allopurinoL 100 MG TABLET PO SCH (09:31)
[2019-04-01] MEDS: RIVAROXABAN 10 MG TABLET PO SCH (09:31)
[2019-04-01] MEDS: MULTIVITAMIN TABLET PO SCH (09:31)
[2019-04-01] MEDS: COLCHICINE 0.6 MG TABLET PO SCH (09:31)
[2019-04-01] MEDS: FAMOTIDINE 20 MG TABLET PO SCH (09:32)
[2019-04-01] MEDS: CEFEPIME 2 GM in SODIUM CHLORIDE 0.9% MINIBAG 100 ML IV SCH (09:32)
[2019-04-01] MEDS: lisinopriL 20 MG TABLET PO SCH (09:32)
--- NOTE | 2019-04-01 11:59 | DISCHARGE SUMMARY ---
Discharge Summary Admit Date: 03/26/19 Discharge Date: 04/01/19 Discharging Provider: NEERAJ Hernandez Primary Care Provider: Kamini rBagg Code Status: Do Not Attempt Resuscitation Condition at Discharge: Good Discharge Disposition: 03 SNF DC/Xfer Discharge Facility Name: [facility] - DIAGNOSES Admission Diagnoses: Syncope Afib Confused HTN (hypertension) Dehydration Hyponatremia Hx of multiple sclerosis Discharge Diagnoses with Status of Each Condition: Aspiration pneumonia-Present on admission, diagnosed on day #2, failed first treatment, improved when changed antibiotics, stable, patient to continue oral Levofloxacin at [facility] Leukocytosis-Improved, stable Neurogenic bladder-Chronic, now with an indwelling lopez Syncope-Resolved, no further episodes, concluded this was due to hypotension from chronic meds Slurred speech-Chronic, consequence of dementia, some times better than other times Dementia-Chronic, progressive, consider Palliative care at [facility] Severe protein-calorie malnutrition-Chronic, progressive, provide in between meal snacks Normocytic anemia-Chronic, iron studies showed iron deficiency anemia, would benefit from an iron supplement Acute metabolic encephalopathy-Resolved Hyponatremia-Resolved Chronic atrial fibrillation-Chronic, rate controlled with metoprolol, adjusted dose, diltiazem Pulmonary hypertension-Chronic, continue on spironolactone NSTEMI (non-ST elevated myocardial infarction)-Chronic, no recurrence, stable HTN (hypertension)-Chronic, stable Generalized weakness-Chronic, stable Hx of multiple sclerosis-Chronic, progressive, now with an indwelling lopez Diet-controlled type 2 diabetes mellitus-Found in history from PCP chart review, Hg A1C was only 4.9%, stable Septic joint of right knee joint-Chronic, resolved, no issues Dehydration-Resolved - HPI History of Present Illness: Danish Ball is an 83-year-old man with a past medical history of hypertension, hyperlipidemia, diet controlled DM type 2, atrial fibrillation on Xarelto, NSTEMI, dementia, and falls. The patient was at [facility] undergoing PT, and finishing IV Rocephin for a septic knee when staff found that he lost consciousness, so he was brought to the ED. Upon arrival, the patient was confused and could not provide any history, and initially, the patients was at the bedside (who also suffers from dementia, and attempted to provide more history). The patient denied chest pain, fevers, chills, shortness of breath, headaches, seizures, unilateral weakness or focal neurological deficits. Labs were unremarkable with the exception of a slightly elevated WBC at 11.4. The patient was admitted to observation for a syncope work up, which concluded these symptoms were most likely from hypotension (medication related). - HOSPITAL COURSE Hospital Course: The patient was admitted from [facility] after a witnessed loss of consciousness. He was worked up for syncope, which was concluded to be caused by hypotension, early aspiration pneumonia. He was changed to inpatient after discovering the aspiration pneumonia. A bedside swallow study, followed by a video swallow was performed for a suspicion of silent aspiration, see instructions for modified diet. He continued to retain urine via bladder scans, so an indwelling lopez was placed for his neurogenic bladder caused by progressive MS. He had bilateral knee pain that was first treated with tramadol, changed to oxycodone for more effectiveness. He was continued on all of his gout medications. He had profound confusion for nearly all of his hospital stay, but this morning is quite imp roved, speaking in full sentences, saying things within context, and is orientated. He has baseline dementia, so he cannot elaborate on his medical history or why he came back to the hospital. He was visited by his daily, and his sister Kalpana a few times. He is medically stable, progressing with physical therapy and can return to [facility] for continued physical & speech therapy. - ALLERGIES Allergies/Adverse Reactions: Allergies Allergy/AdvReac Type Severity Reaction Status Date / Time No Known Drug Allergies Allergy Verified 03/26/19 13:34 - MEDICATIONS Home Medications: Ambulatory Orders Medication Instructions Recorded Confirmed Saccharomyces Boulardii [Florastor] 250 mg PO QDBREAKFAST 03/26/19 03/26/19 Acetaminophen [Tylenol Extra 1,000 mg PO TID PRN #90 04/01/19 03/26/19 Strength] Colchicine [Colcrys] 0.6 mg PO QDBREAKFAST #30 04/01/19 03/26/19 Diltiazem HCl [Cardizem LA] 120 mg PO QDBREAKFAST #30 04/01/19 03/26/19 Lisinopril [Zestril] 2.5 mg PO DAILY #30 tablet 04/01/19 Magnesium Oxide [Mag Ox] 400 mg PO BIDWM #60 tablet 04/01/19 Metoprolol Succinate [Toprol Xl] 50 mg PO BIDWM #60 tablet 04/01/19 Multivitamin [Theragran] 1 each PO QDBREAKFAST #30 04/01/19 03/26/19 Rivaroxaban [Xarelto] 20 mg PO QDBREAKFAST #30 04/01/19 03/26/19 Spironolactone [Aldactone] 25 mg PO DAILY #30 tablet 04/01/19 allopurinoL [Zyloprim] 100 mg PO QDBREAKFAST #30 04/01/19 03/26/19 guaiFENesin [Mucinex] 600 mg PO BID #60 tablet 04/01/19 levoFLOXacin [Levofloxacin] 500 mg PO DAILY #8 tablet 04/01/19 oxyCODONE [Roxicodone] 10 mg PO Q6H #21 tablet 04/01/19 polyethylene glycoL 3350 [Miralax] 17 gm PO DAILY #30 packet 04/01/19 - PHYSICAL EXAM AT DISCHARGE General Appearance: positive: No acute distress, Alert Eyes Bilateral: positive: PERRL, No lid inflammation ENT: positive: Pharynx nml, No signs of dehydration Neck: positive: Thyroid nml, No JVD, Trachea midline Respiratory: positive: Chest non-tender, No respiratory distress, Other (diminished, bilaterally) Cardiovascular: positive: No gallop, Irregularly irregular, Systolic murmur, Decreased pulse(s) Peripheral Pulses: positive: 1+ Abdomen: positive: Non-tender, Nml bowel sounds, Hepatomegaly, Other (rounded, soft) Back: positive: Nml inspection Skin: positive: No rash, Warm, Dry, Other (pale, poor pigment, fragile skin, dry and flakey) Extremities: positive: Pedal edema (mild to BLEs, BLE knee swelling, stiffness to all body joints), Joint swelling Neurologic/Psychiatric: positive: CN's nml (2-12), Disoriented to time, Weakness, Sensory loss, Slurred/abnml speech, Depressed mood/affect (flat, little expression, garbled speech at times, more conversational today) Reflexes: Bicep (R): 2+, Bicep (L): 2+ - LABS Result Diagrams: 04/01/19 04:30 04/01/19 04:30 - SEPSIS Current Stage of Sepsis: Ruled out - TIME SPENT Time Spent in Discharge (Minutes): 60
== END 2019-04-01 14:51 | DRG 177 ==
LOC: EDUNIT# → ED 13:22 → MS2 16:11 → OBSVTOIN 03-28 10:56
PROVIDERS: ADMIT Nurse Practitioner Gerontology; ATTEND Nurse Practitioner
DX: J69.0 Pneumonitis due to inhalation of food and vomit (principal); G93.41 Metabolic encephalopathy; E43 Unspecified severe protein-calorie malnutrition; E87.1 Hypo-osmolality and hyponatremia; I48.91 Unspecified atrial fibrillation; I48.20 Chronic atrial fibrillation, unspecified; I95.1 Orthostatic hypotension; G35 Multiple sclerosis; I10 Essential (primary) hypertension; I08.0 Rheumatic disorders of both mitral and aortic valves; E86.0 Dehydration; F03.90 Unspecified dementia, unspecified severity, without behavioral disturbance, psychotic disturbance, mood disturbance, and anxiety; R41.0 Disorientation, unspecified; I27.20 Pulmonary hypertension, unspecified; N31.9 Neuromuscular dysfunction of bladder, unspecified; R33.9 Retention of urine, unspecified; R39.15 Urgency of urination; R35.0 Frequency of micturition; D64.9 Anemia, unspecified; M25.561 Pain in right knee; M10.9 Gout, unspecified; E11.9 Type 2 diabetes mellitus without complications; R13.10 Dysphagia, unspecified; Z66 Do not resuscitate; Z68.26 Body mass index [BMI] 26.0-26.9, adult; Z91.81 History of falling; Z79.01 Long term (current) use of anticoagulants; I25.2 Old myocardial infarction
CPT/HCPCS: 36415; 70450; 71045; 74230; 80048; 80053; 81001; 83036; 83540; 83690; 83735; 83880; 84466; 84484; 84550; 85025; 86140; 87040; 92610; 93005; 93306; 96361; 96365; 96366; 97110; 97140; 97162; 97166; 97530; 97535; 99285; A9270; G0378; 87086

== ENCOUNTER 2019-04-01 14:53 | Outpatient (CLI) | payer MEDICARE | END 2019-04-01 14:54 | LOC: EMS 14:53 | PROVIDERS: ATTEND Surgery | DX: J18.9 Pneumonia, unspecified organism (principal); F03.90 Unspecified dementia, unspecified severity, without behavioral disturbance, psychotic disturbance, mood disturbance, and anxiety | CPT/HCPCS: A0425; A0428 ==

== ENCOUNTER 2019-04-15 05:25 | Outpatient (CLI) | payer MEDICARE, OTHER ==
[2019-04-15 05:46] LABS: BASOPHILS # (AUTO) 0.1 10^3/uL (0.0-0.1); BASOPHILS % (AUTO) 1.1 %; EOSINOPHILS # (AUTO) 0.3 10^3/uL (0.0-0.7); EOSINOPHILS % (AUTO) 3.1 %; HGB - HEMOGLOBIN 12.5 g/dL (14.0-18.0); LYMPHOCYTES # (AUTO) 2.2 10^3/uL (1.5-3.5); LYMPHOCYTES % (AUTO) 26.5 %; MEAN CORPUSCULAR HEMOGLOBIN 28.5 pg (27.0-31.0); MEAN CORPUSCULAR VOLUME 86.3 fL (80.0-94.0); MEAN PLATELET VOLUME 8.7 fL (7.4-11.4); MONOCYTES # (AUTO) 0.7 10^3/uL (0.0-1.0); MONOCYTES % (AUTO) 7.7 %; PLT - PLATELET COUNT 529 10^3/uL (130-450); RED BLOOD COUNT 4.39 10^6/uL (4.70-6.10); RED CELL DISTRIBUTION WIDTH 14.3 % (12.0-15.0); WHITE BLOOD COUNT 8.4 x10^3/uL (4.8-10.8)
[2019-04-15 05:55] LABS: CALCIUM 9.6 mg/dL (8.5-10.3); CREATININE 0.9 mg/dL (0.6-1.2)
== END 2019-04-15 23:59 | disposition home or self-care (01) ==
LOC: LAB.R 05:25
DX: I48.0 Paroxysmal atrial fibrillation (principal); I10 Essential (primary) hypertension
CPT/HCPCS: 80048; 85025

== ENCOUNTER 2019-05-10 08:00 | Outpatient (CLI) | payer MEDICARE, MEDICAID ==
[2019-05-10 08:28] LABS: BASOPHILS % (AUTO) 0.3 %; EOSINOPHILS # (AUTO) 0.1 10^3/uL (0.0-0.7); EOSINOPHILS % (AUTO) 0.8 %; LYMPHOCYTES # (AUTO) 1.9 10^3/uL (1.5-3.5); LYMPHOCYTES % (AUTO) 20.9 %; MEAN CORPUSCULAR HEMOGLOBIN 28.1 pg (27.0-31.0); MEAN CORPUSCULAR HGB CONC 33.3 g/dL (32.0-36.0); MEAN CORPUSCULAR VOLUME 84.2 fL (80.0-94.0); MEAN PLATELET VOLUME 9.4 fL (7.4-11.4); MONOCYTES # (AUTO) 0.8 10^3/uL (0.0-1.0); MONOCYTES % (AUTO) 8.2 %; NEUTROPHILS # (AUTO) 6.1 10^3/uL (1.5-6.6); NEUTROPHILS % (AUTO) 66.8 %; PLT - PLATELET COUNT 316 10^3/uL (130-450); RED BLOOD COUNT 4.63 10^6/uL (4.70-6.10); RED CELL DISTRIBUTION WIDTH 15.6 % (12.0-15.0); WHITE BLOOD COUNT 9.1 x10^3/uL (4.8-10.8)
[2019-05-10 08:40] LABS: CREATININE 0.9 mg/dL (0.6-1.2)
== END 2019-05-10 23:59 | disposition home or self-care (01) ==
LOC: LAB.R 08:00
PROVIDERS: ATTEND Family Medicine
DX: I48.0 Paroxysmal atrial fibrillation (principal); I10 Essential (primary) hypertension
CPT/HCPCS: 80048; 85025

== ENCOUNTER 2019-05-26 08:00 | Outpatient (CLI) | payer MEDICAID, MEDICARE ==
[2019-05-26 10:09] LABS: CALCIUM 9.3 mg/dL (8.5-10.3); CREATININE 0.7 mg/dL (0.6-1.2)
== END 2019-05-26 23:59 | disposition home or self-care (01) ==
LOC: LAB.R 08:00
PROVIDERS: ATTEND Family Medicine
DX: E87.1 Hypo-osmolality and hyponatremia (principal)
CPT/HCPCS: 80048

== ENCOUNTER 2019-06-01 18:00 | Outpatient (CLI) | payer MEDICARE ==
[2019-06-01 18:57] LABS: CALCIUM 8.5 mg/dL (8.5-10.3); CREATININE 0.8 mg/dL (0.6-1.2)
== END 2019-06-01 23:59 | disposition home or self-care (01) ==
LOC: LAB.R 18:00
PROVIDERS: ATTEND Family Medicine
DX: E56.9 Vitamin deficiency, unspecified (principal)
CPT/HCPCS: 80048

== ENCOUNTER 2019-06-12 18:15 | Outpatient (CLI) | payer MEDICARE, MEDICAID ==
[2019-06-12 18:44] LABS: CALCIUM 8.8 mg/dL (8.5-10.3); CREATININE 0.7 mg/dL (0.6-1.2)
== END 2019-06-12 23:59 | disposition home or self-care (01) ==
LOC: LAB.R 18:15
DX: E87.6 Hypokalemia (principal)
CPT/HCPCS: 80048

== ENCOUNTER 2019-06-22 08:00 | Outpatient (CLI) | payer MEDICARE, MEDICAID ==
[2019-06-22 14:37] LABS: CALCIUM 8.8 mg/dL (8.5-10.3); CREATININE 0.7 mg/dL (0.6-1.2)
== END 2019-06-22 23:59 | disposition home or self-care (01) ==
LOC: LAB.R 08:00
DX: E87.1 Hypo-osmolality and hyponatremia (principal)
CPT/HCPCS: 80048

== ENCOUNTER 2019-06-30 12:00 | Outpatient (CLI) | payer MEDICARE, MEDICAID ==
[2019-06-30 13:52] LABS: ALBUMIN 2.9 g/dL (3.2-5.5); BILIRUBIN,TOTAL 0.9 mg/dL (0.2-1.0); CALCIUM 8.7 mg/dL (8.5-10.3); CREATININE 0.7 mg/dL (0.6-1.2); MAGNESIUM 1.8 mg/dL (1.7-2.8); TOTAL PROTEIN 5.9 g/dL (6.7-8.2)
== END 2019-06-30 23:59 | disposition home or self-care (01) ==
LOC: LAB.R 12:00
DX: R79.89 Other specified abnormal findings of blood chemistry (principal); E83.42 Hypomagnesemia
CPT/HCPCS: 80053; 83735

== ENCOUNTER 2020-02-26 08:00 | Outpatient (CLI) | payer MEDICAID, MEDICARE ==
[2020-02-26 09:43] LABS: BASOPHILS # (AUTO) 0.1 10^3/uL (0.0-0.1); BASOPHILS % (AUTO) 0.8 %; EOSINOPHILS # (AUTO) 0.8 10^3/uL (0.0-0.7); HGB - HEMOGLOBIN 15.8 g/dL (14.0-18.0); LYMPHOCYTES # (AUTO) 3.4 10^3/uL (1.5-3.5); MEAN CORPUSCULAR HEMOGLOBIN 27.4 pg (27.0-31.0); MEAN CORPUSCULAR HGB CONC 32.6 g/dL (32.0-36.0); MEAN CORPUSCULAR VOLUME 84.2 fL (80.0-94.0); MEAN PLATELET VOLUME 8.9 fL (7.4-11.4); MONOCYTES # (AUTO) 0.6 10^3/uL (0.0-1.0); MONOCYTES % (AUTO) 5.5 %; NEUTROPHILS # (AUTO) 5.3 10^3/uL (1.5-6.6); NEUTROPHILS % (AUTO) 51.5 %; PLT - PLATELET COUNT 440 10^3/uL (130-450); RED BLOOD COUNT 5.76 10^6/uL (4.70-6.10); RED CELL DISTRIBUTION WIDTH 14.9 % (12.0-15.0); WHITE BLOOD COUNT 10.2 x10^3/uL (4.8-10.8)
[2020-02-26 09:49] LABS: CALCIUM 9.9 mg/dL (8.5-10.3); CREATININE 0.9 mg/dL (0.6-1.2)
== END 2020-02-26 23:59 | disposition home or self-care (01) ==
LOC: LAB.R 08:00
DX: G93.41 Metabolic encephalopathy (principal); E83.42 Hypomagnesemia; D64.9 Anemia, unspecified; R53.1 Weakness
CPT/HCPCS: 80048; 85025

== ENCOUNTER 2020-03-14 15:35 | Outpatient (CLI) | payer MEDICARE ==
[2020-03-14 16:33] LABS: BASOPHILS # (AUTO) 0.1 10^3/uL (0.0-0.1); BASOPHILS % (AUTO) 0.8 %; EOSINOPHILS # (AUTO) 0.8 10^3/uL (0.0-0.7); EOSINOPHILS % (AUTO) 7.9 %; HGB - HEMOGLOBIN 14.1 g/dL (14.0-18.0); LYMPHOCYTES # (AUTO) 2.8 10^3/uL (1.5-3.5); MEAN CORPUSCULAR HEMOGLOBIN 29.1 pg (27.0-31.0); MEAN CORPUSCULAR HGB CONC 34.2 g/dL (32.0-36.0); MEAN CORPUSCULAR VOLUME 84.9 fL (80.0-94.0); MEAN PLATELET VOLUME 9.3 fL (7.4-11.4); MONOCYTES # (AUTO) 0.7 10^3/uL (0.0-1.0); MONOCYTES % (AUTO) 6.4 %; NEUTROPHILS # (AUTO) 5.9 10^3/uL (1.5-6.6); NEUTROPHILS % (AUTO) 57.3 %; PLT - PLATELET COUNT 360 10^3/uL (130-450); RED BLOOD COUNT 4.85 10^6/uL (4.70-6.10); RED CELL DISTRIBUTION WIDTH 15.6 % (12.0-15.0); WHITE BLOOD COUNT 10.3 x10^3/uL (4.8-10.8)
[2020-03-14 16:45] LABS: CALCIUM 8.9 mg/dL (8.5-10.3); CREATININE 0.8 mg/dL (0.6-1.2)
== END 2020-03-14 23:59 | disposition home or self-care (01) ==
LOC: LAB.R 15:35
DX: L03.115 Cellulitis of right lower limb (principal)
CPT/HCPCS: 36415; 80048; 85025; 85651

== ENCOUNTER 2020-03-25 13:35 | Outpatient (CLI) | payer MEDICARE ==
[2020-03-25 15:20] LABS: CALCIUM 9.5 mg/dL (8.5-10.3); CREATININE 0.9 mg/dL (0.6-1.2)
== END 2020-03-25 23:59 | disposition home or self-care (01) ==
LOC: LAB.R 13:35
PROVIDERS: ATTEND Family Medicine
DX: E11.9 Type 2 diabetes mellitus without complications (principal); I95.9 Hypotension, unspecified
CPT/HCPCS: 80048

== ENCOUNTER 2020-04-18 07:00 | Outpatient (CLI) | payer MEDICARE ==
[2020-04-18 19:38] LABS: BASOPHILS # (AUTO) 0.1 10^3/uL (0.0-0.1); BASOPHILS % (AUTO) 0.7 %; EOSINOPHILS # (AUTO) 0.9 10^3/uL (0.0-0.7); EOSINOPHILS % (AUTO) 8.2 %; HCT - HEMATOCRIT 43.5 % (42.0-52.0); HGB - HEMOGLOBIN 14.4 g/dL (14.0-18.0); LYMPHOCYTES # (AUTO) 2.6 10^3/uL (1.5-3.5); LYMPHOCYTES % (AUTO) 23.6 %; MEAN CORPUSCULAR HEMOGLOBIN 28.5 pg (27.0-31.0); MEAN CORPUSCULAR HGB CONC 33.1 g/dL (32.0-36.0); MEAN PLATELET VOLUME 9.3 fL (7.4-11.4); MONOCYTES # (AUTO) 0.7 10^3/uL (0.0-1.0); MONOCYTES % (AUTO) 6.4 %; NEUTROPHILS # (AUTO) 6.7 10^3/uL (1.5-6.6); NEUTROPHILS % (AUTO) 60.6 %; PLT - PLATELET COUNT 350 10^3/uL (130-450); RED BLOOD COUNT 5.06 10^6/uL (4.70-6.10); RED CELL DISTRIBUTION WIDTH 14.7 % (12.0-15.0)
[2020-04-18 19:45] LABS: ALBUMIN 3.5 g/dL (3.2-5.5); ALBUMIN/GLOBULIN RATIO 1.1 (1.0-2.2); BILIRUBIN,TOTAL 0.5 mg/dL (0.2-1.0); CALCIUM 9.4 mg/dL (8.5-10.3); POTASSIUM 4.1 mmol/L (3.5-5.0); TOTAL PROTEIN 6.7 g/dL (6.7-8.2)
== END 2020-04-18 23:59 | disposition home or self-care (01) ==
LOC: LAB.R 07:00
DX: G35 Multiple sclerosis (principal); E11.9 Type 2 diabetes mellitus without complications; I48.20 Chronic atrial fibrillation, unspecified
CPT/HCPCS: 80053; 85025

== ENCOUNTER 2021-06-02 16:24 | Outpatient (CLI) | payer MEDICARE ==
[2021-06-02 16:42] LABS: CALCIUM 8.7 mg/dL (8.5-10.3); CREATININE 0.9 mg/dL (0.6-1.2); POTASSIUM 3.9 mmol/L (3.5-5.0)
== END 2021-06-02 16:25 | disposition home or self-care (01) ==
LOC: LAB.R 16:24
PROVIDERS: ATTEND Hospitalist
DX: E56.9 Vitamin deficiency, unspecified (principal); R53.1 Weakness; R60.1 Generalized edema
CPT/HCPCS: 80048

== ENCOUNTER 2021-06-27 18:14 | Outpatient (CLI) | payer MEDICARE, MEDICAID ==
[2021-06-27 18:37] LABS: CALCIUM 9.1 mg/dL (8.5-10.3); CREATININE 0.9 mg/dL (0.6-1.2); POTASSIUM 3.9 mmol/L (3.5-5.0)
== END 2021-06-27 23:59 | disposition home or self-care (01) ==
LOC: LAB.R 18:14
PROVIDERS: ATTEND Hospitalist
DX: I10 Essential (primary) hypertension (principal)
CPT/HCPCS: 80048

== ENCOUNTER 2021-11-27 12:49 | Outpatient (CLI) | payer MEDICARE, MEDICAID ==
[2021-11-27 12:56] LABS: BASOPHILS # (AUTO) 0.1 10^3/uL (0.0-0.1); BASOPHILS % (AUTO) 0.9 %; EOSINOPHILS # (AUTO) 0.4 10^3/uL (0.0-0.7); HGB - HEMOGLOBIN 15.4 g/dL (14.0-18.0); LYMPHOCYTES # (AUTO) 2.6 10^3/uL (1.5-3.5); LYMPHOCYTES % (AUTO) 23.7 %; MEAN CORPUSCULAR HEMOGLOBIN 29.1 pg (27.0-31.0); MEAN CORPUSCULAR HGB CONC 33.5 g/dL (32.0-36.0); MEAN PLATELET VOLUME 9.4 fL (7.4-11.4); MONOCYTES # (AUTO) 0.5 10^3/uL (0.0-1.0); MONOCYTES % (AUTO) 4.9 %; NEUTROPHILS # (AUTO) 7.2 10^3/uL (1.5-6.6); NEUTROPHILS % (AUTO) 65.9 %; PLT - PLATELET COUNT 356 10^3/uL (130-450); RED BLOOD COUNT 5.29 10^6/uL (4.70-6.10); RED CELL DISTRIBUTION WIDTH 14.3 % (12.0-15.0); WHITE BLOOD COUNT 10.9 x10^3/uL (4.8-10.8)
[2021-11-27 13:27] LABS: ALBUMIN 3.2 g/dL (3.2-5.5); ALBUMIN/GLOBULIN RATIO 1.1 (1.0-2.2); BILIRUBIN,TOTAL 0.6 mg/dL (0.2-1.0); CALCIUM 8.9 mg/dL (8.5-10.3); CREATININE 0.8 mg/dL (0.6-1.2); POTASSIUM 3.5 mmol/L (3.5-5.0); TOTAL PROTEIN 6.2 g/dL (6.7-8.2)
[2021-11-27 15:12] LABS: BILIRUBIN,URINE NEGATIVE (NEGATIVE); GLUCOSE, URINE (UA) NEGATIVE (NEGATIVE); KETONES,URINE (UA) NEGATIVE (NEGATIVE); LEUKOCYTE ESTERASE, URINE MODERATE (NEGATIVE); NITRITE,URINE POSITIVE (NEGATIVE); OCCULT BLOOD,URINE LARGE (NEGATIVE); PH,URINE 5.5 PH (5.0-7.5); PROTEIN,URINE TRACE mg/dL (NEGATIVE); UROBILINOGEN,URINE 1 (NORMAL) E.U./dL (NORMAL)
[2021-11-27 15:13] LABS: CLARITY,URINE CLOUDY (CLEAR)
[2021-11-27 15:32] LABS: RBC,URINE TNTC /HPF (0-5); WBC,URINE >25 /HPF (0-3)
[2021-11-27 15:33] LABS: BACTERIA,URINE Many /HPF (None Seen); CRYSTALS,URINE 11-25 Ca Oxalate /LPF; SQUAMOUS EPITHELIAL CELL,UR RARE Squamous (<= Few)
== END 2021-11-27 12:50 | disposition home or self-care (01) ==
LOC: LAB.R 12:49
PROVIDERS: ATTEND Internal Medicine
DX: I27.20 Pulmonary hypertension, unspecified (principal); I10 Essential (primary) hypertension; G93.41 Metabolic encephalopathy; E43 Unspecified severe protein-calorie malnutrition; R60.1 Generalized edema; N39.0 Urinary tract infection, site not specified
CPT/HCPCS: 80053; 81001; 85025; 87077; 87086; 87181

== ENCOUNTER 2022-01-26 14:00 | Outpatient (CLI) | payer SELFPAY ==
[2022-01-26 16:07] LABS: B. PARAPERTUSSIS- RESP PCR PAN NOT DETECTED; B. PERTUSSIS- RESP PCR PANEL NOT DETECTED; C. PNEUMONIAE- RESP PCR PANEL NOT DETECTED; CORONAVIRUS 229E-RESP PCR NOT DETECTED; CORONAVIRUS HKU1-RESP PCR NOT DETECTED; CORONAVIRUS NL63-RESP PCR NOT DETECTED; CORONAVIRUS OC43-RESP PCR NOT DETECTED; HUMAN METAPNEUMOVIRUS NOT DETECTED; INFLUENZA A- RESP PCR PANEL NOT DETECTED; INFLUENZA B - RESP PCR PANEL NOT DETECTED; M. PNEUMONIAE- RESP PCR PANEL NOT DETECTED; PARAINFLUENZA VIRUS 1 NOT DETECTED; PARAINFLUENZA VIRUS 2 NOT DETECTED; PARAINFLUENZA VIRUS 3 NOT DETECTED; PARAINFLUENZA VIRUS 4 NOT DETECTED; RHINOVIRUS/ENTEROVIRUS NOT DETECTED; RSV- RESP PCR PANEL DETECTED; SARS-CoV-2 -RESP PCR PANEL NOT DETECTED
== END 2022-01-26 23:59 | disposition home or self-care (01) ==
LOC: LAB.R 14:00
PROVIDERS: ATTEND Internal Medicine
DX: R05.9 Cough, unspecified (principal); Z20.822 Contact with and (suspected) exposure to COVID-19
CPT/HCPCS: 87633

== ENCOUNTER 2022-03-31 21:50 | Outpatient (CLI) | payer MEDICARE ==
[2022-03-31 22:31] LABS: GLUCOSE, URINE (UA) NEGATIVE (NEGATIVE); OCCULT BLOOD,URINE LARGE (NEGATIVE)
[2022-03-31 22:40] LABS: BILIRUBIN,URINE NEGATIVE (NEGATIVE); CLARITY,URINE CLOUDY (CLEAR); ICTOTEST,URINE NEGATIVE
[2022-03-31 22:43] LABS: BACTERIA,URINE Few /HPF (None Seen); MUCUS,URINE Few Strands; RBC,URINE TNTC /HPF (0-5); SQUAMOUS EPITHELIAL CELL,UR NONE SEEN (<= Few); WBC,URINE 0-3 /HPF (0-3)
== END 2022-03-31 23:59 | disposition home or self-care (01) ==
LOC: LAB.R 21:50
DX: N39.0 Urinary tract infection, site not specified (principal)
CPT/HCPCS: 81001; 87086

== ENCOUNTER 2022-04-05 15:40 | Outpatient (CLI) | payer MEDICARE ==
[2022-04-05 17:11] LABS: BASOPHILS # (AUTO) 0.1 10^3/uL (0.0-0.1); BASOPHILS % (AUTO) 1.1 %; EOSINOPHILS # (AUTO) 0.3 10^3/uL (0.0-0.7); EOSINOPHILS % (AUTO) 2.6 %; HCT - HEMATOCRIT 47.1 % (42.0-52.0); HGB - HEMOGLOBIN 15.6 g/dL (14.0-18.0); LYMPHOCYTES % (AUTO) 23.4 %; MEAN CORPUSCULAR HEMOGLOBIN 29.4 pg (27.0-31.0); MEAN CORPUSCULAR HGB CONC 33.1 g/dL (32.0-36.0); MEAN CORPUSCULAR VOLUME 88.9 fL (80.0-94.0); MEAN PLATELET VOLUME 9.5 fL (7.4-11.4); MONOCYTES # (AUTO) 0.7 10^3/uL (0.0-1.0); MONOCYTES % (AUTO) 5.5 %; NEUTROPHILS # (AUTO) 8.6 10^3/uL (1.5-6.6); NEUTROPHILS % (AUTO) 66.5 %; PLT - PLATELET COUNT 448 10^3/uL (130-450); RED CELL DISTRIBUTION WIDTH 15.4 % (12.0-15.0); WHITE BLOOD COUNT 12.9 x10^3/uL (4.8-10.8)
[2022-04-05 17:37] LABS: ALBUMIN 3.1 g/dL (3.2-5.5); ALBUMIN/GLOBULIN RATIO 0.9 (1.0-2.2); ALKALINE PHOSPHATASE 102 IU/L (42-121); ALT ALANINE AMINOTRANSFERASE < 10 IU/L (10-60); AST ASPARTATE AMINOTRANSFERASE 20 IU/L (10-42); BILIRUBIN,TOTAL 0.7 mg/dL (0.2-1.0); BUN - BLOOD UREA NITROGEN 10 mg/dL (6-20); CALCIUM 8.8 mg/dL (8.5-10.3); CARBON DIOXIDE - CO2 28 mmol/L (21-32); CHLORIDE 100 mmol/L (101-111); CREATININE 0.7 mg/dL (0.6-1.2); GFR - MDRD 106 (>89); GLUCOSE 107 mg/dL (70-100); POTASSIUM 3.7 mmol/L (3.5-5.0); SODIUM 136 mmol/L (135-145); TOTAL PROTEIN 6.7 g/dL (6.7-8.2); URIC ACID 5.5 mg/dL (2.6-7.2)
== END 2022-04-05 23:59 | disposition home or self-care (01) ==
LOC: LAB.R 15:40
DX: D64.9 Anemia, unspecified (principal); R53.1 Weakness; E78.5 Hyperlipidemia, unspecified; R60.1 Generalized edema; M10.9 Gout, unspecified
CPT/HCPCS: 80053; 84550; 85025

== ENCOUNTER 2022-07-05 11:35 | Outpatient (CLI) | payer MEDICARE ==
[2022-07-05 13:11] LABS: ESTIMATED AVERAGE GLUCOSE 88 mg/dL (70-100); HEMOGLOBIN A1c% 4.7 % (4.27-6.07)
== END 2022-07-05 11:36 | disposition home or self-care (01) ==
LOC: LAB.R 11:35
PROVIDERS: ATTEND Registered Nurse
DX: E11.9 Type 2 diabetes mellitus without complications (principal)
CPT/HCPCS: 83036

== ENCOUNTER 2022-09-10 13:12 | Outpatient (CLI) | payer MEDICARE ==
[2022-09-10 14:06] LABS: BASOPHILS # (AUTO) 0.1 10^3/uL (0.0-0.1); BASOPHILS % (AUTO) 1.2 %; EOSINOPHILS # (AUTO) 0.3 10^3/uL (0.0-0.7); EOSINOPHILS % (AUTO) 3.2 %; HGB - HEMOGLOBIN 13.8 g/dL (14.0-18.0); LYMPHOCYTES # (AUTO) 2.3 10^3/uL (1.5-3.5); LYMPHOCYTES % (AUTO) 25.4 %; MEAN CORPUSCULAR HEMOGLOBIN 29.8 pg (27.0-31.0); MEAN CORPUSCULAR HGB CONC 33.7 g/dL (32.0-36.0); MEAN CORPUSCULAR VOLUME 88.6 fL (80.0-94.0); MEAN PLATELET VOLUME 9.2 fL (7.4-11.4); MONOCYTES # (AUTO) 0.5 10^3/uL (0.0-1.0); MONOCYTES % (AUTO) 5.4 %; NEUTROPHILS # (AUTO) 5.9 10^3/uL (1.5-6.6); NEUTROPHILS % (AUTO) 64.4 %; PLT - PLATELET COUNT 347 10^3/uL (130-450); RED BLOOD COUNT 4.63 10^6/uL (4.70-6.10); RED CELL DISTRIBUTION WIDTH 14.6 % (12.0-15.0); WHITE BLOOD COUNT 9.2 x10^3/uL (4.8-10.8)
== END 2022-09-10 13:13 | disposition home or self-care (01) ==
LOC: LAB.R 13:12
PROVIDERS: ATTEND Registered Nurse
DX: L03.90 Cellulitis, unspecified (principal)
CPT/HCPCS: 85025; 85651; 86140

== ENCOUNTER 2023-01-26 08:00 | Outpatient (CLI) | payer MEDICARE ==
[2023-01-26 17:12] LABS: BILIRUBIN,URINE NEGATIVE (NEGATIVE); GLUCOSE, URINE (UA) NEGATIVE (NEGATIVE); KETONES,URINE (UA) TRACE mg/dL (NEGATIVE); LEUKOCYTE ESTERASE, URINE TRACE (NEGATIVE); NITRITE,URINE POSITIVE (NEGATIVE); OCCULT BLOOD,URINE LARGE (NEGATIVE); PROTEIN,URINE >=300 mg/dL (NEGATIVE); UROBILINOGEN,URINE 2 E.U./dL (NORMAL)
[2023-01-26 17:18] LABS: BASOPHILS # (AUTO) 0.1 10^3/uL (0.0-0.1); BASOPHILS % (AUTO) 0.7 %; EOSINOPHILS # (AUTO) 0.5 10^3/uL (0.0-0.7); EOSINOPHILS % (AUTO) 4.4 %; HCT - HEMATOCRIT 41.8 % (42.0-52.0); HGB - HEMOGLOBIN 13.9 g/dL (14.0-18.0); LYMPHOCYTES # (AUTO) 2.9 10^3/uL (1.5-3.5); LYMPHOCYTES % (AUTO) 23.4 %; MEAN CORPUSCULAR HEMOGLOBIN 29.4 pg (27.0-31.0); MEAN CORPUSCULAR HGB CONC 33.3 g/dL (32.0-36.0); MEAN CORPUSCULAR VOLUME 88.4 fL (80.0-94.0); MONOCYTES # (AUTO) 0.7 10^3/uL (0.0-1.0); MONOCYTES % (AUTO) 5.9 %; NEUTROPHILS # (AUTO) 7.9 10^3/uL (1.5-6.6); NEUTROPHILS % (AUTO) 64.5 %; PLT - PLATELET COUNT 369 10^3/uL (130-450); RED BLOOD COUNT 4.73 10^6/uL (4.70-6.10); RED CELL DISTRIBUTION WIDTH 13.9 % (12.0-15.0); WHITE BLOOD COUNT 12.3 x10^3/uL (4.8-10.8)
[2023-01-26 17:21] LABS: BACTERIA,URINE Rare /HPF (None Seen); CLARITY,URINE CLOUDY (CLEAR); RBC,URINE TNTC /HPF (0-5); SQUAMOUS EPITHELIAL CELL,UR RARE Squamous (<= Few)
[2023-01-26 17:29] LABS: ALBUMIN 3.4 g/dL (3.2-5.5); ALBUMIN/GLOBULIN RATIO 1.1 (1.0-2.2); BILIRUBIN,TOTAL 0.4 mg/dL (0.2-1.0); CALCIUM 9.3 mg/dL (8.5-10.3); CREATININE 0.7 mg/dL (0.6-1.3); POTASSIUM 4.5 mmol/L (3.5-4.5); TOTAL PROTEIN 6.5 g/dL (6.4-8.9); URIC ACID 5.2 mg/dL (4.4-7.6)
== END 2023-01-26 23:59 | disposition home or self-care (01) ==
LOC: LAB.R 08:00
PROVIDERS: ATTEND Registered Nurse
DX: E56.9 Vitamin deficiency, unspecified (principal); Z79.01 Long term (current) use of anticoagulants; M10.9 Gout, unspecified
CPT/HCPCS: 80053; 81001; 84550; 85025; 87086

== ENCOUNTER 2023-01-30 14:38 | Outpatient (CLI) | payer MEDICARE ==
[2023-01-30 21:31] LABS: ESTIMATED AVERAGE GLUCOSE 94 mg/dL (70-100); HEMOGLOBIN A1c% 4.9 % (4.27-6.07)
== END 2023-01-30 14:39 | disposition home or self-care (01) ==
LOC: LAB 14:38 → LAB.R 14:39
DX: E79.0 Hyperuricemia without signs of inflammatory arthritis and tophaceous disease (principal); R73.09 Other abnormal glucose
CPT/HCPCS: 83036; 84550

== ENCOUNTER 2023-02-12 08:00 | Outpatient (CLI) | payer MEDICARE ==
[2023-02-12 18:43] LABS: BASOPHILS # (AUTO) 0.1 10^3/uL (0.0-0.1); BASOPHILS % (AUTO) 0.8 %; EOSINOPHILS # (AUTO) 0.4 10^3/uL (0.0-0.7); HCT - HEMATOCRIT 45.1 % (42.0-52.0); HGB - HEMOGLOBIN 14.9 g/dL (14.0-18.0); LYMPHOCYTES # (AUTO) 2.7 10^3/uL (1.5-3.5); MEAN CORPUSCULAR HEMOGLOBIN 29.3 pg (27.0-31.0); MEAN CORPUSCULAR VOLUME 88.6 fL (80.0-94.0); MEAN PLATELET VOLUME 9.1 fL (7.4-11.4); MONOCYTES # (AUTO) 0.6 10^3/uL (0.0-1.0); MONOCYTES % (AUTO) 6.4 %; NEUTROPHILS # (AUTO) 5.5 10^3/uL (1.5-6.6); NEUTROPHILS % (AUTO) 58.9 %; PLT - PLATELET COUNT 321 10^3/uL (130-450); RED BLOOD COUNT 5.09 10^6/uL (4.70-6.10); RED CELL DISTRIBUTION WIDTH 14.1 % (12.0-15.0); WHITE BLOOD COUNT 9.3 x10^3/uL (4.8-10.8)
[2023-02-12 18:53] LABS: ALBUMIN 3.7 g/dL (3.2-5.5); ALBUMIN/GLOBULIN RATIO 1.2 (1.0-2.2); BILIRUBIN,TOTAL 0.5 mg/dL (0.2-1.0); CALCIUM 9.6 mg/dL (8.5-10.3); CREATININE 0.7 mg/dL (0.6-1.3); CRP - C-REACTIVE PROTEIN 0.6 mg/dL (<0.5); POTASSIUM 4.5 mmol/L (3.5-4.5); TOTAL PROTEIN 6.9 g/dL (6.4-8.9)
== END 2023-02-12 23:59 | disposition home or self-care (01) ==
LOC: LAB.R 08:00
PROVIDERS: ATTEND Registered Nurse
DX: Z01.89 Encounter for other specified special examinations (principal)
CPT/HCPCS: 36415; 80053; 85025; 85651; 86140

== ENCOUNTER 2023-02-12 17:51 | Outpatient (CLI) | payer MEDICARE ==
--- NOTE | 2023-02-13 11:36 | XRAY Report ---
PROCEDURE: Foot 1-2V RT INDICATIONS: OSTEOMYELITIS, UNSPECIFIED TECHNIQUE: 2 views of the foot were acquired. COMPARISON: None. FINDINGS: Bones: Generalized osteopenia. No definite acute fracture is seen as positioned on this exam. Suspec laurent mild osseous irregularity at the tip of the 2nd distal phalanx. Chronic osseous irregularity at t he 2nd metatarsal shaft may be secondary to prior trauma or chronic inflammation. Small plantar calca jason enthesophyte. Soft tissues: Skin ulceration is seen at the distal tip of the 2nd toe. There is soft tissue edema i n the 2nd toe and throughout the forefoot. IMPRESSION: Skin ulceration at the distal 2nd toe with mild osseous irregularity at the adjacent 2nd distal phala nx that is suspicious for osteomyelitis. MRI of the forefoot could be performed for further evaluatio n if indicated clinically. Reviewed by: Clifton Gutierres MD on 02/13/2023 11:35 AM PST Approved by: Clifton Gutierres MD on 02/13/2023 11:35 AM PST Station ID: [id number]
== END 2023-02-12 17:52 | disposition home or self-care (01) ==
LOC: DI 17:51
PROVIDERS: ATTEND Registered Nurse
DX: L97.519 Non-pressure chronic ulcer of other part of right foot with unspecified severity (principal)
CPT/HCPCS: 36415; 80053; 85025; 85651; 86140

== ENCOUNTER 2023-03-21 12:19 | Day surgery (SDC) | payer MEDICARE, MEDICAID ==
[2023-03-21 13:18] VITALS: O2SAT 100
--- NOTE | 2023-03-21 14:55 | ANESTHESIA PROCEDURE NOTE ---
Anesth Central Line Template - Central Line Central Line Preparation: Consent Obtained Central line location: Left Basilic Central line type: PICC Single Lumen Central line catheter tip site resides: Superior vena cava (SVC) Central line aftercare: Secured, Placement confirmed, No pneumothorax, No complications, Bundle checklist complete, Pt tolerated well
--- NOTE | 2023-03-21 15:02 | CONSULTATION NOTE ---
Consultation Report: consulted for OP PICC line placement for OP IV antibiotics. Informed consent obtained. Unable to find a vein large enough for PICC line on RUE. U/S guided LUE PICC line placed under sterile technique. Catheter threaded easily, tip trimmed to 50cm, 0 exposed. Statlock placed and line secured with sterile dressing. Portable CXR for line placement.
--- NOTE | 2023-03-21 15:37 | XRAY Report ---
PROCEDURE: Chest for Line Placement INDICATIONS: post line placement TECHNIQUE: One view of the chest was acquired. COMPARISON: None. FINDINGS: Surgical changes and devices: Left arm PICC is present, tip of which is not well seen, but appears t o be in the mid SVC. Lungs and pleura: No pleural effusions or pneumothorax. Lungs are clear. Mediastinum: Mediastinal contours appear normal. Heart size is normal. Bones and chest wall: No suspicious bony lesions. Overlying soft tissues appear unremarkable. IMPRESSION: No acute cardiopulmonary process. Reviewed by: Shanta Santiago MD on 03/21/2023 3:35 PM PST Approved by: Shanta Santiago MD on 03/21/2023 3:35 PM [facility] Station ID: [id number]
[2023-03-21] MEDS: cefTRIAXone 2 GM VIAL ONE (15:47)
[2023-03-21 16:11] VITALS: BP 124/54
== END 2023-03-21 12:20 | disposition home or self-care (01) ==
LOC: SDS 12:19
PROVIDERS: ATTEND Registered Nurse
DX: R93.6 Abnormal findings on diagnostic imaging of limbs (principal); R23.8 Other skin changes
CPT/HCPCS: 36569; C1751

== ENCOUNTER 2023-04-05 15:50 | Outpatient (CLI) | payer MEDICARE, MEDICAID | END 2023-04-05 15:51 | disposition home or self-care (01) | LOC: LAB.R 15:50 | PROVIDERS: ATTEND Registered Nurse | DX: M10.9 Gout, unspecified (principal) | CPT/HCPCS: 84550 ==

== ENCOUNTER 2023-05-15 10:49 | Day surgery (SDC) | payer MEDICARE, MEDICAID ==
[2023-05-15 11:20] VITALS: BP 107/51; O2SAT 98
--- NOTE | 2023-05-15 12:58 | ANESTHESIA PROCEDURE NOTE ---
Anesth Central Line Template - Central Line Central Line Preparation: Consent Obtained Central line location: Right Basilic Central line type: PICC Single Lumen Central line catheter tip site resides: Superior vena cava (SVC) Central line aftercare: Secured, Placement confirmed, No complications, Bundle checklist complete, Pt tolerated well
--- NOTE | 2023-05-15 12:59 | XRAY Report ---
PROCEDURE: Chest for Line Placement INDICATIONS: confirm PICC placement TECHNIQUE: One view of the chest was acquired. COMPARISON: 03/21/2023. FINDINGS: Surgical changes and devices: Right-sided PICC line tip is in SVC. Lungs and pleura: No pleural effusions or pneumothorax. Lungs are clear. Mediastinum: Mediastinal contours appear normal. Heart size is enlarged. Bones and chest wall: No suspicious bony lesions. Overlying soft tissues appear unremarkable. IMPRESSION: No acute cardiopulmonary process. Right-sided PICC line tip is in SVC. Reviewed by: Glenn Poole MD on 05/15/2023 12:58 PM PDT Approved by: Glenn Poole MD on 05/15/2023 12:58 PM PDT Station ID: [id number]
== END 2023-05-15 10:50 | disposition home or self-care (01) ==
LOC: SDS 10:49
PROVIDERS: ATTEND Nurse Anesthetist, Certified Registered
DX: M86.171 Other acute osteomyelitis, right ankle and foot (principal)
CPT/HCPCS: 36569; C1751

== ENCOUNTER 2023-06-02 08:00 | Outpatient (CLI) | payer MEDICARE, MEDICAID ==
[2023-06-02 15:04] LABS: BASOPHILS # (AUTO) 0.1 10^3/uL (0.0-0.1); BASOPHILS % (AUTO) 0.8 %; EOSINOPHILS # (AUTO) 0.3 10^3/uL (0.0-0.7); HCT - HEMATOCRIT 43.7 % (42.0-52.0); HGB - HEMOGLOBIN 14.1 g/dL (14.0-18.0); LYMPHOCYTES # (AUTO) 2.8 10^3/uL (1.5-3.5); LYMPHOCYTES % (AUTO) 30.4 %; MEAN CORPUSCULAR HEMOGLOBIN 28.3 pg (27.0-31.0); MEAN CORPUSCULAR HGB CONC 32.3 g/dL (32.0-36.0); MEAN CORPUSCULAR VOLUME 87.6 fL (80.0-94.0); MEAN PLATELET VOLUME 9.5 fL (7.4-11.4); MONOCYTES # (AUTO) 0.5 10^3/uL (0.0-1.0); MONOCYTES % (AUTO) 5.8 %; NEUTROPHILS # (AUTO) 5.5 10^3/uL (1.5-6.6); NEUTROPHILS % (AUTO) 59.3 %; PLT - PLATELET COUNT 327 10^3/uL (130-450); RED BLOOD COUNT 4.99 10^6/uL (4.70-6.10); RED CELL DISTRIBUTION WIDTH 14.4 % (12.0-15.0); WHITE BLOOD COUNT 9.2 x10^3/uL (4.8-10.8)
[2023-06-02 15:20] LABS: ALBUMIN 3.3 g/dL (3.2-5.5); BILIRUBIN,TOTAL 0.5 mg/dL (0.2-1.0); CALCIUM 9.3 mg/dL (8.5-10.3); CREATININE 0.6 mg/dL (0.6-1.3); POTASSIUM 4.1 mmol/L (3.5-4.5); TOTAL PROTEIN 6.5 g/dL (6.4-8.9)
== END 2023-06-02 23:59 | disposition home or self-care (01) ==
LOC: LAB.R 08:00
PROVIDERS: ATTEND Registered Nurse
DX: E11.9 Type 2 diabetes mellitus without complications (principal); I48.0 Paroxysmal atrial fibrillation
CPT/HCPCS: 80053; 85025

== ENCOUNTER 2023-06-12 08:00 | Outpatient (CLI) | payer MEDICARE, MEDICAID ==
[2023-06-13 00:30] LABS: BASOPHILS # (AUTO) 0.1 10^3/uL (0.0-0.1); BASOPHILS % (AUTO) 0.7 %; EOSINOPHILS # (AUTO) 0.4 10^3/uL (0.0-0.7); EOSINOPHILS % (AUTO) 3.6 %; HGB - HEMOGLOBIN 12.3 g/dL (14.0-18.0); LYMPHOCYTES # (AUTO) 2.9 10^3/uL (1.5-3.5); LYMPHOCYTES % (AUTO) 23.8 %; MEAN CORPUSCULAR HEMOGLOBIN 28.9 pg (27.0-31.0); MEAN CORPUSCULAR HGB CONC 32.4 g/dL (32.0-36.0); MEAN CORPUSCULAR VOLUME 89.2 fL (80.0-94.0); MEAN PLATELET VOLUME 10.1 fL (7.4-11.4); MONOCYTES # (AUTO) 0.8 10^3/uL (0.0-1.0); MONOCYTES % (AUTO) 6.5 %; NEUTROPHILS # (AUTO) 7.8 10^3/uL (1.5-6.6); NEUTROPHILS % (AUTO) 64.6 %; PLT - PLATELET COUNT 312 10^3/uL (130-450); RED BLOOD COUNT 4.26 10^6/uL (4.70-6.10); RED CELL DISTRIBUTION WIDTH 14.4 % (12.0-15.0); WHITE BLOOD COUNT 12.1 x10^3/uL (4.8-10.8)
[2023-06-13 00:43] LABS: ALBUMIN 3.1 g/dL (3.2-5.5); ALBUMIN/GLOBULIN RATIO 1.1 (1.0-2.2); BILIRUBIN,TOTAL 0.4 mg/dL (0.2-1.0); CALCIUM 9.2 mg/dL (8.5-10.3); CREATININE 0.6 mg/dL (0.6-1.3); CRP - C-REACTIVE PROTEIN 1.4 mg/dL (<0.5); POTASSIUM 4.2 mmol/L (3.5-4.5); TOTAL PROTEIN 5.8 g/dL (6.4-8.9)
== END 2023-06-13 23:59 | disposition home or self-care (01) ==
LOC: LAB.R 08:00
PROVIDERS: ATTEND Registered Nurse
DX: I48.0 Paroxysmal atrial fibrillation (principal); I10 Essential (primary) hypertension; M62.84 Sarcopenia; L85.3 Xerosis cutis
CPT/HCPCS: 80053; 85025; 85651; 86140; 87070; 87181; 87205

== ENCOUNTER 2023-08-01 08:00 | Outpatient (CLI) | payer MEDICARE, MEDICAID ==
[2023-08-01 20:29] LABS: ESTIMATED AVERAGE GLUCOSE 97 mg/dL (70-100)
== END 2023-08-01 23:59 | disposition home or self-care (01) ==
LOC: LAB.R 08:00
PROVIDERS: ATTEND Registered Nurse
DX: E11.621 Type 2 diabetes mellitus with foot ulcer (principal); M10.9 Gout, unspecified
CPT/HCPCS: 83036; 84550